=== PATIENT | male | born 1950 | race Caucasian/White ===

== ENCOUNTER 2016-11-15 06:26 | Day surgery (SDC) | payer MEDICARE ==
[~2016-11-15 06:26] MED LIST: BUPIVACAINE HCL 0.75% INJ/PF (7.5 MG/1 ML) 10 ML SDV OS PRN; KETOROLAC TROMETHAMINE 0.45% 4 DROP/0.4 ML DROPERETTE OS PRN; LIDOCAINE 4% INJ/PF (40 MG/ML) 5 ML AMPUL OS PRN
[2016-11-15] MEDS: TROPICAMIDE 1% OPH SOLN 3 ML OS PRN ×3 (06:41→07:20)
[2016-11-15] MEDS: CYCLOPENTOLATE 0.2%/PHENYLEPHRINE 1% OPH SOLN 2 ML OS PRN ×3 (06:41→07:20)
[2016-11-15] MEDS: BESIFLOXACIN HCL 0.6% OPH SUSP 5 ML BOTTLE OS PRN ×4 (06:42→07:59)
[2016-11-15] MEDS: TETRACAINE HCL 0.5% OPH SOLN 0.6 ML DROPERETTE OS PRN ×2 (06:43→07:22)
[2016-11-15] MEDS ORDERED: EPINEPHRINE INJ/PF 1 MG/1 ML AMPULE ONE (07:10)
[2016-11-15] MEDS ORDERED: CHONDR SU A NA/HYALUR INTRAOC KIT (SURGICARE) ONE (07:10)
[2016-11-15] MEDS ORDERED: PHENYLEPHRINE/KETOROLAC 1%-0.3% 4 ML VIAL ONE (07:20)
[2016-11-15] MEDS ORDERED: MIDAZOLAM 2 MG/2 ML INJ ONE ×2 (07:23→07:24)
--- NOTE | 2016-11-15 08:38 | [facility] DISCHARGE SUMMARY E ---
[facility] Discharge Summary NAME: MARIFER LOZA AGE: 66Y ADMITTED: 11/15/2016 DISCHARGED: 11/15/2016 HOSPITAL COURSE: The patient is a 66-year-old gentleman who underwent uneventful cataract extraction with intraocular lens implant, left eye, on 11/15/2016. He will be discharged to home. He is instructed to resume preoperative medications, take Tylenol as needed for discomfort, keep his eye shielded, to use Besivance, Durezol, and Ilevro at 3:00 p.m. and 8:00 p.m., and to followup in my office in 1 day. DICTATING PHYSICIAN: TAMARA SUAREZ M.D. [id number] Y#: [id number] ID: [id number] JOB#: [id number] ACCT: [id number] cc:TAMARA SUAREZ M.D. >
--- NOTE | 2016-11-15 08:38 | [facility] OPERATIVE REPORT E ---
[facility] Operative Report NAME: MARIFER LOZA AGE: 66Y DATE OF SURGERY: 11/15/2016 ROOM: PREOPERATIVE DIAGNOSIS: Cataract, left eye. POSTOPERATIVE DIAGNOSIS: Cataract, left eye. PROCEDURE PERFORMED: Phacoemulsification with Toric intraocular lens implant, left eye. SURGEON: TAMARA SUAREZ M.D. ANESTHESIA: Topical with MAC. INDICATIONS FOR SURGERY: Difficulty reading road signs and words on TV. Best corrected visual acuity 20/50. PROCEDURE: The patient was brought to the Operating Room and placed in a seated position. The 0, 180, and 270 degree axis of the eye was marked using a marking level. Prior to this, instrument wipe pledgets had been placed in the superior and inferior fornices. They consisted of a solution of 2% Xylocaine with epinephrine mixed with 0.75% Marcaine. The patient was placed in reclining position. The eye was sterilely prepped and draped in the usual manner. The pledgets were removed. Lid speculum was placed in the eye. Then 4-0 black silk sutures were placed around the superior and the inferior rectus muscles to be used as traction. A conjunctival peritomy was made at the 135 degree axis. Hemostasis was obtained with bipolar cautery. A posterior limbal groove was created using a crescent knife and dissected anteriorly towards the cornea. A sharp point blade was used to create a paracentesis site at the 2 o'clock position. A 2.4 mm keratome was used to enter the anterior chamber through the groove. Viscoelastic was injected into the anterior chamber. An anterior capsulotomy was performed using Utrata forceps in a capsulorrhexis fashion. Hydrodissection and hydrodelineation were performed. Phacoemulsification was performed in a xzfhan-gyy-wfjuxlf technique. A total of 40 seconds of total phaco time was used. Following this, the I/A unit was used to remove residual cortex. Viscoelastic was injected into the capsular bag. Intraocular lens model [id number], 22.0 diopters, serial number [id number], was placed in the eye. The 180 degree axis was marked on the eye. The lens was rotated within 10 degrees of the final axis. The I/A unit was used to remove residual Viscoat and the lens was rotated to the 180 degree axis. The wound was seen to be watertight under high or low pressure. No sutures were placed. The 4-0 black silk sutures and lid speculum were removed. The eye was shielded after Besivance drops were placed. The patient tolerated the procedure well and was sent to the Recovery Room in good condition. DICTATING PHYSICIAN: TAMARA SUAREZ M.D. [id number] PHY#: [id number] ID: [id number] JOB#: [id number] ACCT: [id number] cc:TAMARA SUAREZ M.D. >
== END 2016-11-15 08:41 | disposition home or self-care (01) ==
LOC: SC 06:26
PROVIDERS: ATTEND Ophthalmology
PROC: 08RK3JZ Replacement of Left Lens with Synthetic Substitute, Percutaneous Approach (ICD-10-PCS; principal; 2016-11-15 07:30)
DX: H25.813 Combined forms of age-related cataract, bilateral (principal); H53.2 Diplopia; H52.4 Presbyopia; H43.812 Vitreous degeneration, left eye; H17.811 Minor opacity of cornea, right eye; G51.0 Bell's palsy; I10 Essential (primary) hypertension; Z79.899 Other long term (current) drug therapy
CPT/HCPCS: 66984; V2787; J2250; J3490 ×3; A9270; J0171; C9447

== ENCOUNTER 2016-12-08 20:17 | Inpatient (IN) | payer MEDICARE ==
[2016-12-08] MEDS ORDERED: ONDANSETRON HCL INJ/PF 4 MG/2 ML SDV IV ONE ×2 (21:53→23:51)
[2016-12-08] MEDS ORDERED: HYDROMORPHONE HCL INJ/PF 2 MG/ML AMPULE IV ONE (21:53)
--- NOTE | 2016-12-08 21:56 | ER Document Report ---
ED GI/ - General Chief Complaint: Urinary Problem Stated Complaint: URINARY RETENTION Mode of Arrival: Ambulatory Information source: Patient Notes: This is a 66-year-old male with a history of hypertension who presents with inability to urinate and severe abdominal pain. He states that for the past 2 or 3 days he has felt it was difficult to urinate and only dribble would come out. He saw his primary care physician yesterday who put him on an antibiotic for urinary tract infection. Today his abdominal pain has become severe. He did vomit one time in route to the hospital. He states that he feels like he needs to urinate but is unable to. He states he has not urinated at all today. No prior history of urinary infection, kidney stone, or urinary retention. TRAVEL OUTSIDE OF THE [place] IN LAST 30 DAYS: No - Related Data Allergies/Adverse Reactions: BEE STINGS Allergy (Severe, Uncoded 12/08/16 20:26) Anaphylaxis Past Medical History - Social History Smoking Status: Unknown if Ever Smoked Family History: Reviewed & Not Pertinent - Past Medical History Cardiac Medical History: Reports: Hx Hypertension - MEDICATED Denies: Hx Heart Attack Pulmonary Medical History: Denies: Hx Asthma Neurological Medical History: Denies: Hx Cerebrovascular Accident, Hx Seizures Renal/ Medical History: Denies: Hx Peritoneal Dialysis GI Medical History: Reports: Hx Gastroesophageal Reflux Disease, Hx Ulcer - AT 15 YRS. Denies: Hx Hepatitis, Hx Hiatal Hernia Infectious Medical History: Denies: Hx Hepatitis Past Surgical History: Denies: Hx Open Heart Surgery, Hx Pacemaker Review of Systems - Review of Systems Constitutional: denies: Chills, Fever EENT: No symptoms reported Cardiovascular: No symptoms reported. denies: Chest pain Respiratory: No symptoms reported. denies: Cough, Short of breath Gastrointestinal: See HPI, Abdominal pain, Vomiting Genitourinary: See HPI Musculoskeletal: No symptoms reported Skin: No symptoms reported Hematologic/Lymphatic: No symptoms reported Neurological/Psychological: No symptoms reported Physical Exam - Vital signs Vitals: Temp Pulse Resp BP Pulse Ox 98.5 F 69 16 125/96 H 99 12/08/16 20:26 12/08/16 20:26 12/08/16 20:26 12/08/16 20:26 12/08/16 20:26 - Notes Notes: PHYSICAL EXAMINATION: GENERAL: Elderly male, somewhat ill-appearing and pale, conversant and in mild distress secondary to abdominal pain. HEAD: Atraumatic, normocephalic. EYES: Pupils equal round and reactive to light, extraocular movements intact, sclera anicteric, conjunctiva are normal. ENT: nares patent, oropharynx clear without exudates. Moist mucous membranes. NECK: Normal range of motion, supple without lymphadenopathy LUNGS: Breath sounds clear to auscultation bilaterally and equal. No wheezes rales or rhonchi. HEART: Regular rate and rhythm without murmurs ABDOMEN: Somewhat firm, distended, tender to palpation throughout the lower abdomen, no guarding or rebound, hypoactive bowel sounds but present EXTREMITIES: Normal range of motion, no pitting or edema. NEUROLOGICAL: Cranial nerves grossly intact. No gross focal motor or sensory deficits appreciated. Patient does answer somewhat slowly but is not confused at this time. PSYCH: Normal mood, normal affect. SKIN: Warm, Dry, pale, normal turgor, no rashes or lesions noted. Course - Re-evaluation Re-evalutation: 12/09/16 01:[address] results with the radiologist. There appears to be a focal perforation around the sigmoid. This is likely from a diverticuli. I discussed the case with the on-call surgeon Dr. Albright. We discussed the hyponatremia as well as the urinary retention in the sigmoid perforation. Patient will be admitted to the surgical floor. He has been given Rocephin and Zosyn. Normal saline is infusing. I discussed the plan and the diagnosis with the patient and the family. All questions were answered. - Vital Signs Vital signs: Temp Pulse Resp BP Pulse Ox 98.5 F 69 18 108/66 94 12/08/16 20:26 12/08/16 20:26 12/09/16 00:25 12/09/16 00:25 12/09/16 00:25 - Laboratory Result Diagrams: 12/08/16 22:30 12/08/16 22:30 Laboratory results interpreted by me: 12/08/16 12/08/16 12/08/16 22:30 22:30 22:30 WBC 18.4 H Seg Neuts % (Manual) 87 H Band Neutrophils % 2 L Lymphocytes % (Manual) 4 L Abs Neuts (Manual) 16.4 H Sodium 120.8 L* Chloride 82 L Urine Protein 30 H Urine Blood LARGE H Urine Nitrite POSITIVE H Urine Urobilinogen 4.0 H Ur Leukocyte Esterase MODERATE H Urine Ascorbic Acid 40 H Critical Care Note - Critical Care Note Total time excluding time spent on procedures (mins): 40 - minutes of critical care time spent in direct contact evaluating and reevaluating the patient, treating symptoms, reviewing labs and studies and speaking with family and consultants excluding any procedures Discharge - Discharge Clinical Impression: Perforation of sigmoid colon due to diverticulitis, Hyponatremia, Acute urinary retention UTI (urinary tract infection) Qualifiers: Urinary tract infection type: site unspecified Hematuria presence: without hematuria Qualified Code(s): N39.0 - Urinary tract infection, site not specified Condition: Serious Disposition: ADMITTED INPATIENT Admitting Provider: Surgicalist - Dr. Albright Unit Admitted: Surgical Floor
[2016-12-08 22:43] LABS: HEMOGLOBIN 13.8 g/dL (13.5-17.0); HGB HCT DIFFERENCE 2.4; MEAN CORPUSCULAR HEMOGLOBIN 31.5 pg (27.0-33.4); MEAN CORPUSCULAR HGB CONC 35.3 g/dL (32.0-36.0); MEAN CORPUSCULAR VOLUME 89 fl (80-97); RED BLOOD COUNT 4.36 10^6/uL (4.35-5.55); RED CELL DISTRIBUTION WIDTH 13.1 % (11.5-14.0); WHITE BLOOD COUNT 18.4 10^3/uL (4.0-10.5)
[2016-12-08 22:59] LABS: APPEARANCE,URINE CLOUDY; BILIRUBIN,URINE NEGATIVE (NEGATIVE); GLUCOSE, URINE NEGATIVE (NEGATIVE); KETONES,URINE NEGATIVE (NEGATIVE); LEUKOCYTE ESTERASE,URINE MODERATE (NEGATIVE); NITRITE,URINE POSITIVE (NEGATIVE); PROTEIN,URINE 30 mg/dL (NEGATIVE); URINE SPECIFIC GRAVITY 1.011
[2016-12-08 23:03] LABS: ALANINE AMINOTRANSFERASE 33 U/L (21-72); ALBUMIN 4.1 g/dL (3.5-5.0); ALKALINE PHOSPHATASE 79 U/L (38-126); ANION GAP 15 (5-19); ASPARTATE AMINO TRANSFERASE 35 U/L (17-59); BILIRUBIN,DIRECT 0.1 mg/dL (0.0-0.4); BILIRUBIN,TOTAL 1.2 mg/dL (0.2-1.3); BLOOD UREA NITROGEN 11 mg/dL (7-20); CALCIUM 9.4 mg/dL (8.4-10.2); CARBON DIOXIDE 24 mmol/L (22-30); CHLORIDE 82 mmol/L (98-107); CREATININE RESULT 1.09 mg/dL (0.52-1.25); GLUCOSE 110 mg/dL (75-110); LIPASE 50.3 U/L (23-300); POTASSIUM 3.9 mmol/L (3.6-5.0)
[2016-12-08] MEDS ORDERED: CEFTRIAXONE 1 GM/D5W RTU 50 ML IV ONE (23:08)
[2016-12-08 23:11] LABS: BAND NEUTROPHILS % (MANUAL) 2 % (3-5); BASOPHILS % (MANUAL) 0 % (0-2); EOSINOPHILS % (MANUAL) 0 % (0-6); LYMPHOCYTES % (MANUAL) 4 % (13-45); TOTAL CELLS COUNTED 100
[2016-12-08 23:12] LABS: RBC MORPHOLOGY COMMENT NORMO-CYTIC/CHROMIC
[2016-12-08 23:15] LABS: SODIUM 120.8 mmol/L (137-145)
[2016-12-08] MEDS ORDERED: NORMAL SALINE 1000 ML 1,000 ML IV ONE (23:50)
[2016-12-09] MEDS ORDERED: PROMETHAZINE HCL 25 MG SUPP.RECT PR ONE (00:57)
[2016-12-09] MEDS ORDERED: PIPERACILLIN/TAZOBACTAM 3.375 GM VIAL IV ONE (01:18)
[2016-12-09] MEDS: POTASSI CL 20 MEQ/NS 1L 1000 ML IV PRN ×2 (04:49→18:04)
[2016-12-09] MEDS ORDERED: DEXTROSE 50%-WATER 25 GM/50 ML DISP.SYRIN IV PRN ×2 (05:15)
[2016-12-09] MEDS ORDERED: DEXTROSE 40% GEL 15 GM TUBE PO PRN ×2 (05:15)
[2016-12-09] MEDS ORDERED: GLUCAGON,HUMAN RECOMB 1 MG INJ SUBCUT PRN (05:15)
[2016-12-09 06:24] LABS: HEMATOCRIT 36.3 % (37.9-51.0); HEMOGLOBIN 12.3 g/dL (13.5-17.0); HGB HCT DIFFERENCE 0.6; MEAN CORPUSCULAR HEMOGLOBIN 30.8 pg (27.0-33.4); MEAN CORPUSCULAR VOLUME 91 fl (80-97); RED CELL DISTRIBUTION WIDTH 13.1 % (11.5-14.0); WHITE BLOOD COUNT 12.7 10^3/uL (4.0-10.5)
--- NOTE | 2016-12-09 09:10 | EKG REPORT ---
SEVERITY:- BORDERLINE ECG - SINUS RHYTHM BORDERLINE LEFT AXIS DEVIATION NONSPECIFIC ST-T CHANGES- INFERIOR LEADS : Confirmed by: Donavon Gaming MD 09-Dec-2016 09:09:24
[2016-12-09] MEDS: PIPERACILLIN SODIUM/TAZOBACTAM 3.375 GM in NORMAL SALINE 100 ML IV SCH ×2 (09:30→17:56)
[2016-12-09] MEDS ORDERED: NORMAL SALINE 1000 ML 1,000 ML IV ONE (10:15)
[2016-12-09 10:35] LABS: BLOOD UREA NITROGEN 12 mg/dL (7-20); CALCIUM 8.6 mg/dL (8.4-10.2); CARBON DIOXIDE 28 mmol/L (22-30); CHLORIDE 87 mmol/L (98-107); CREATININE RESULT 1.06 mg/dL (0.52-1.25); GLUCOSE 112 mg/dL (75-110); POTASSIUM 3.9 mmol/L (3.6-5.0)
[2016-12-09 10:53] LABS: ANION GAP 5 (5-19)
[2016-12-09 11:02] LABS: SODIUM 119.6 mmol/L (137-145)
[2016-12-09] MEDS ORDERED: ROCURONIUM BROMIDE INJ 50 MG/5 ML VIAL IV ONE (11:12)
[2016-12-09] MEDS ORDERED: NEOSTIGMINE METHYLSULFATE 10 MG/10 ML VIAL ONE (11:12)
[2016-12-09] MEDS ORDERED: GLYCOPYRROLATE INJ 0.4 MG/2 ML VIAL ONE (11:12)
[2016-12-09] MEDS ORDERED: SUCCINYLCHOLINE CHLORIDE INJ 200 MG/10 ML VIAL ONE (11:12)
[2016-12-09] MEDS ORDERED: NORMAL SALINE 500 ML IV ONE (12:00)
[2016-12-09] MEDS ORDERED: ACETAMINOPHEN 100 ML IV ONE (12:07)
[2016-12-09] MEDS ORDERED: PROPOFOL INJ 200 MG/20 ML VIAL IV ONE (12:07)
[2016-12-09] MEDS ORDERED: MIDAZOLAM 2 MG/2 ML INJ ONE (12:07)
[2016-12-09] MEDS ORDERED: FENTANYL CITRATE INJ/PF 250 MCG/5 ML AMPULE ONE (12:07)
[2016-12-09] MEDS ORDERED: HYDROMORPHONE HCL INJ/PF 2 MG/ML AMPULE ONE (12:07)
[2016-12-09] MEDS ORDERED: FUROSEMIDE INJ/PF 40 MG/4 ML SDV ONE (12:17)
[2016-12-09] MEDS ORDERED: GLUCAGON,HUMAN RECOMB 1 MG INJ ONE (12:33)
[2016-12-09] MEDS ORDERED: BUPIVACAINE HCL 0.5%-EPI 1:200000 INJ/PF 30 ML VIAL ONE (13:31)
[2016-12-09] MEDS ORDERED: ONDANSETRON HCL INJ/PF 4 MG/2 ML SDV IV PRN ×2 (13:41→16:49)
[2016-12-09] MEDS ORDERED: MORPHINE SULFATE 10 MG/ML INJ IV PRN ×2 (13:41→16:49)
[2016-12-09] MEDS ORDERED: PROMETHAZINE HCL INJ 25 MG/1 ML VIAL IV PRN (13:41)
[2016-12-09] MEDS ORDERED: FENTANYL CITRATE INJ/PF 100 MCG/2 ML AMPUL IV PRN ×6 (13:41→16:49)
[2016-12-09] MEDS ORDERED: MEPERIDINE HCL/PF INJ 25 MG/1 ML DISP.SYRIN IV PRN ×2 (13:41→16:49)
[2016-12-09] MEDS ORDERED: DIPHENHYDRAMINE HCL 50 MG/ML VIAL IV PRN ×2 (13:41→16:49)
[2016-12-09] MEDS ORDERED: LABETALOL HCL INJ 20 MG/4 ML DISP.SYRIN IV PRN ×2 (13:41→16:49)
[2016-12-09 16:56] LABS: ANION GAP 7 (5-19); BLOOD UREA NITROGEN 11 mg/dL (7-20); CALCIUM 7.7 mg/dL (8.4-10.2); CARBON DIOXIDE 19 mmol/L (22-30); CHLORIDE 105 mmol/L (98-107); CREATININE RESULT 1.04 mg/dL (0.52-1.25); GLUCOSE 99 mg/dL (75-110); POTASSIUM 4.2 mmol/L (3.6-5.0); SODIUM 130.5 mmol/L (137-145)
[2016-12-09] MEDS: HYDROMORPHONE HCL INJ/PF 2 MG/ML AMPULE IV PRN (17:54)
--- NOTE | 2016-12-09 18:53 | PDOC CONSULTATION ---
Consultation Consult Date: 12/09/16 Attending physician:: GANESH NEIL Consult reason:: Hyponatremia History of Present Illness Admission Date/PCP: 12/09/16 01:00 SELMA LACEY History of Present Illness: MARIFER LOZA JR is a 66 year old male with past medical history of hypertension, hyperlipidemia who presented to the hospital today with inability to urinate and abdominal pain. Patient had seen his primary care physician was placed on Bactrim for a UTI. Patient subsequently was eating and drinking some and normally until about Saturday when his eating begin to decrease. He did have some diarrhea. He has had chronic diverticulitis and according to his does not always compliant with his diet. CT scan of the abdomen was performed in the emergency department and patient was found to have sigmoid perforation and was referred to the surgical service and taken for immediate surgical intervention. At the time patient was hyponatremic with sodium of 120. Prior to being taken to surgery, patient appears to have received several boluses of normal saline as per report he was hypotensive. The hospital service has been consulted for hyponatremia. Past Medical History Cardiac Medical History: Reports: Hypertension - MEDICATED Denies: Myocardial Infarction Pulmonary Medical History: Denies: Asthma Neurological Medical History: Denies: Seizures GI Medical History: Reports: Gastroesophageal Reflux Disease Denies: Hepatitis, Hiatal Hernia Hematology: Denies: Anemia, Sickle Cell Disease Past Surgical History Past Surgical History: Reports: None Denies: Pacemaker Social History Smoking Status: Former Smoker Number of Years Smokin Frequency of Alcohol Use: Social Amount of Alcoholic Beverages Per Day: 12oz wine Hx Recreational Drug Use: No Drugs: None Hx Prescription Drug Abuse: No - Advance Directive Resuscitation Status: Full Code Surrogate healthcare decision maker:: Angela Family History Family History: Malignancy, Other Parental Family History Reviewed: Yes Children Family History Reviewed: No Sibling(s) Family History Reviewed.: No Medication/Allergy Home Medications: Bupropion HCl [Wellbutrin Xl 300mg 24hr Tablet] 1 tab PO QAM 11/07/16 Fluticasone Furoate [Flonase Sensimist] 1 spray NS DAILYP PRN 11/07/16 Meloxicam [Mobic 7.5 Mg Tablet] 7.5 mg PO DAILY 11/07/16 Metoprolol Succinate [Toprol Xl] 25 mg PO DAILY 11/07/16 Pravastatin Sodium 40 mg PO DAILY 11/07/16 Trazodone HCl [Desyrel 50 mg Tablet] 50 mg PO QHS 11/07/16 Valsartan 160 mg PO DAILY 11/07/16 Cetirizine HCl [Zyrtec 10 mg Tablet] 1 tab PO DAILY 11/15/16 Omeprazole/Sodium Bicarbonate [Zegerid 20 Mg Capsule] 1 each PO DAILY 11/15/16 Allergies/Adverse Reactions: bee venom protein (honey bee) Allergy (Severe, Verified 12/09/16 03:28) Anaphylaxis Review of Systems ROS unobtainable: Due to mental status - Patient is currently lethargic after surgery Physical Exam Vital Signs: Temp Pulse Resp BP Pulse Ox 98.2 F 77 18 130/66 H 96 12/09/16 18:00 12/09/16 18:00 12/09/16 18:00 12/09/16 18:00 12/09/16 18:00 Intake & Output 12/08/16 12/09/16 12/10/16 06:59 06:59 06:59 Intake Total 0 6615 Output Total 3720 Balance 0 2895 Weight 79.2 kg General appearance: PRESENT: well-developed, well-nourished, other - Acutely ill -appearing Head exam: PRESENT: atraumatic, normocephalic Eye exam: PRESENT: conjunctiva pink, EOMI, PERRLA - Though myotic. ABSENT: scleral icterus Ear exam: PRESENT: normal external ear exam Mouth exam: PRESENT: dry mucosa, tongue midline Neck exam: ABSENT: JVD, lymphadenopathy, thyromegaly, tracheal deviation Respiratory exam: PRESENT: clear to auscultation emmanuel, symmetrical, unlabored. ABSENT: crackles, rales, retraction, rhonchi, tachypnea, wheezes Cardiovascular exam: PRESENT: RRR, +S1, +S2. ABSENT: clicks, diastolic murmur, gallop, rubs, systolic murmur, tachycardia Pulses: PRESENT: normal dorsalis pedis pul Vascular exam: PRESENT: normal capillary refill GI/Abdominal exam: PRESENT: tenderness - Diffusely tender, immediately postsurgical Rectal exam: PRESENT: deferred Extremities exam: ABSENT: clubbing, pedal edema Neurological exam: PRESENT: awake, oriented to person, oriented to place, oriented to time, oriented to situation, CN II-XII grossly intact. ABSENT: alert - Sleepy, immediately postsurgical, motor sensory deficit Psychiatric exam: PRESENT: appropriate affect, normal mood. ABSENT: homicidal ideation, suicidal ideation Skin exam: PRESENT: dry, intact, warm. ABSENT: cyanosis, rash Results Laboratory Results: 12/09/16 06:14 12/09/16 16:24 12/09/16 12/09/16 12/09/16 06:14 06:14 06:14 WBC 12.7 H RBC 4.00 L Hgb 12.3 L Hct 36.3 L MCV 91 MCH 30.8 MCHC 34.0 RDW 13.1 Plt Count 131 L Sodium 119.6 L* Potassium 3.9 Chloride 87 L Carbon Dioxide 28 Anion Gap 5 BUN 12 Creatinine 1.06 Est GFR ( Amer) > 60 Est GFR (Non-Af Amer) > 60 Glucose 112 H Calcium 8.6 Blood Type O POSITIVE Antibody Screen NEGATIVE 12/09/16 16:24 WBC RBC Hgb Hct MCV MCH MCHC RDW Plt Count Sodium 130.5 L Potassium 4.2 Chloride 105 Carbon Dioxide 19 L Anion Gap 7 BUN 11 Creatinine 1.04 Est GFR ( Amer) > 60 Est GFR (Non-Af Amer) > 60 Glucose 99 Calcium 7.7 L Blood Type Antibody Screen 12/09/16 06:14 NT-Pro-B Natriuret Pep 863 Impressions: Chest X-Ray 12/08/16 21:54 IMPRESSION: Mild left basilar atelectasis. Abdomen/Pelvis CT 12/09/16 00:00 IMPRESSION: Colonic diverticulosis. Mild inflammatory changes with a gas and fluid collection in the anterior midline pelvis adjacent to the sigmoid colon, suggestive of acute diverticulitis with a contained bowel perforation. Surgical consult recommended. Assessment & Plan - Diagnosis (1) Hyponatremia Is this a current diagnosis for this admission?: YesPlan: This is likely secondary to dehydration patient's urine sodium is 73. Will obtain a serum and urine osmolality. However patient is quite clearly dehydrated and requires IV fluid. This likely represents hyponatremia secondary to intravascular volume depletion. Due to rapid correction from 119.6 to 130.5, will administer 1 L of D5 and repeat sodium at which time, new IV fluid orders will be placed. Upon review of patient's former labs, he appears to be mildly hyponatremic chronically with previous sodium coming in at 136.7. Goal will be for the total increase sodium by no more than 8 mEq the next 24 hours. Sign out of outstanding labs and maintenance fluid will be given to the night physician. (2) Perforation of sigmoid colon due to diverticulitis Is this a current diagnosis for this admission?: YesPlan: At this time, defer all management of abdominal complaints, complications, diagnoses, and treatments to the surgical team. (3) Acute urinary retention Is this a current diagnosis for this admission?: YesPlan: Patient currently has Fajardo in place and will consider Flomax plus or minus urology consult. (4) UTI (urinary tract infection) Qualifiers: Urinary tract infection type: site unspecified Hematuria presence: without hematuria Qualified Code(s): N39.0 - Urinary tract infection, site not specified Is this a current diagnosis for this admission?: YesPlan: Patient is currently on Zosyn pending results of culture. Family reports this is his first UTI - Time Time Spent: 50 to 70 Minutes Medications reviewed and adjusted accordingly: Yes
--- NOTE | 2016-12-09 18:54 | HISTORY AND PHYSICAL E ---
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 The patient presented to the emergency room with a 2-day history of severe abdominal pain, most started up in the lower abdomen and then before that, he could not urinate. He developed also, fever with some chills. He came to emergency room, where abdominal CT scan showed diverticulitis with air bubbles around the colon, indicative of diverticulitis with a microperforation. Also, he is having difficulty in passing urine. He has severe urinary retention. After putting in a Fajardo, he put out immediately about 1 L to 1.5 L of dark urine. The patient also gives a history of intermittent left lower abdominal pain, pain in the suprapubic area for the last few weeks. Also, patient experiencing passing bubbles of air in the urine, pneumaturia. The patient had a history of diverticulitis in the past. No recent colonoscopy. PAST MEDICAL PROBLEMS: History of mild hypertension. No other major medical problems. PAST SURGICAL HISTORY: No surgical history reported. PHYSICAL EXAMINATION: VITAL SIGNS: He has a temperature of about 99, up to 100. HEENT: No lymphadenopathy. No masses. RESPIRATORY: Both lungs with good air entry. CARDIOVASCULAR: Both heart sounds are regular. No murmurs. No gallops. ABDOMEN: Soft abdomen. Tender in the left lower abdomen with some amount of localized rebound. Bowel sounds are present, somewhat sluggish. EXTREMITIES: Warm and well perfused. NEUROLOGIC: No focal motor neurological deficits. DIAGNOSTIC DATA: Labs: His sodium was 120 (hyponatremia), potassium is normal, BUN and creatinine are normal. White count was 18, hemoglobin [address] scan, which revealed diverticulitis with air bubbles. Found maybe some air bubbles in the bladder. IMPRESSION: Overall, recurrent diverticulitis with localized perforation, possible colovesical fistula. PLAN: Admission. Correct the hyponatremia. More than likely will need a surgery, but I want to correct the hyponatremia, give him some fluids, start him on Zosyn, reevaluate in a few hours and based on that, he will need surgical intervention. DICTATING PHYSICIAN: GANESH NEIL M.D. [id number] PHY#: [id number] ID: [id number] JOB#: [id number] ACCT: [id number] cc:GANESH NEIL M.D. > [facility]
--- NOTE | 2016-12-09 18:57 | OPERATIVE REPORT E ---
Operative Report NAME: MARIFER LOZA : 1950 AGE: 66Y DATE OF SURGERY: 12/09/2016 ROOM: 415 PREOPERATIVE DIAGNOSES: 1. Recurrent sigmoid diverticulosis with a localized perforation of the colon related the fistula. 2. Urosepsis. POSTOPERATIVE DIAGNOSES: 1. Recurrent sigmoid diverticulosis with a localized perforation of the colon related the fistula with a colorectal fistula. 2. Urosepsis. 3. Localized abscess. OPERATION: 1. Laparoscopic resection of the sigmoid and distal descending colon with a proximal ascending colon to colorectal anastomosis. 2. Laparoscopic drainage of the pericolonic abscess. 3. Laparoscopic splenic flexure mobilization . 4. Repair of colorectal fistula and bladder repair complex in the dome of the bladder. SURGEON: GANESH NEIL M.D. ANESTHESIA: General. ESTIMATED BLOOD LOSS: Less than 50 mL. TISSUE REMOVED OR ALTERED: Specimens: Left colon. HISTORY/INDICATION: This gentleman had a history of diverticulitis before, presented to the emergency room with a history of acute onset of abdominal pain in the left lower quadrant of the abdomen, also fever and severe hyponatremia noted in the emergency room. A CT scan revealed some air around the colon, air bubbles in the bladder and a white count of 18,000, and then he had hyponatremia with a 120 sodium. He was placed in the hospital to correct the severe hyponatremia, started on normal saline, fluid restriction, and then patient also gave a classical history of colorectal fistula with pneumaturia and severe urosepsis. He needed a rather urgent emergency laparoscopic colonic resection because of the urosepsis, severe hyponatremia, and then also fever with chills. We additionally explained about the possibility of a colonoscopy and then a reoperation. He was taken to the operating room with informed consent. DESCRIPTION OF PROCEDURE: Under general anesthesia, with prior intubation and SCD boots, he was given an IV antibiotics . Initial access was a 5 mm trocar in the supraumbilical area. Two 5 mm trocars in the right side abdomen area and a 12 mm in the suprapubic area. Findings were a sigmoid phlegmon, and then the sigmoid colon was attached to the dome of the bladder indicative of a colorectal fistula. In the anterior abdominal wall between the colon and the anterior abdominal wall there is an abscess localized. Proximal colon was pretty healthy except for a few diverticula in the distal descending colon. After confirming of the proximal descending colon, the transverse colon, and descending colon absolutely appeared to be normal, we proceeded with a left colon resection. Initially we performed the part of the operation which was a splenic flexure mobilization. The splenic flexure was completely mobilized by dividing the greater omental attachments to the distal transverse colon and also splenic flexure further mobilized by dividing the greater omental attachments. After that, splenocolic, renal colonic, and pancreatic colonic ligaments were divided so that the splenic flexure and mesocolon were completely mobilized. After that, lateral to medial mobilization of the descending colon was performed all the way to the rectosigmoid colon.. At this point, the left ureter was completely identified and thus it was removed from this area. After completion of this, the medial mobilization was done, and the inferior mesenteric artery and inferior mesenteric vein was divided by using Hemoclips and an Enseal device . In the proximal ascending colon there was a demarcation between the proximal healthy colon and distal inflamed colon, so the end of the proximal ascending colon was divided with proximal dissection to that point. The mesocolon was divided between the clips and Enseal device. The proximal ascending colon was divided by using the [place] stapler. After that, dissection was taken down towards the upper part of the rectum with dissection all around. Superior rectal vessel were preserved. The rectum had excellent blood supply. The upper part of the rectum was circumferentially mobilized, and then it was divided by using a thicker stapler, and while mobilizing it, the localized abscess was drained out without any further contamination of the rest of the abdominal cavity. After draining this, abdominal cavity and pelvic cavity were again suctioned out until the effluent was very clear. The supraumbilical 12 mm trocar was extended for another 2 cm, and a wound protector was placed. Through the wound protector, specimen was retrieved. After that, proximally the descending colon was brought out and then the an anvil of was inserted into the proximal ascending colon, secured in place to the back of the peritoneal cavity. The peritoneal cavity, after irrigating and once it was suctioned out, had Seprafilm placed in the abdominal cavity to prevent adhesions. Now, the subumbilical incision was closed by using #0-Vicryl. At this point, the suprapubic area and the bladder dome was exposed where the fistula was present, so bladder dome fistula was repaired after freshening the edges by using the #0-Vicryl running no two layers. After completion of repair of the bladder dome, now the rest of the peritoneum was closed by using #0-Vicryl and then the fascia was closed with #0 looped PDS. After that, the fascia suture was left untied at this point, and the pneumoperitoneum was re-created under direct laparoscopic visualization. Descending colon to upper rectal anastomosis was performed between the upper part of the rectum and the distal descending colon that was run after inserting the stapler to the mid point of the segment, and was brought out to the pin. Anvil was engaged after making sure left colon was straight without any kinks. The staple line was completely closed and then fired, and two complete circular donuts were obtained leaving excellent anastomosis and vascularity which was confirmed by sigmoidoscopy, and then the anastomotic staple line was reinforced both posteriorly and anteriorly by using the 2-0 Vicryl sutures. The anastomotic donuts were complete. After that, a BAN drain was placed in the anastomotic area, brought out through the 5 mm trocar in the right lower quadrant area. Then, all the trocars were removed from the abdomen and the stay sutures was tied, 4-0 Monocryl for the skin, Dermabond applied. The patient was stable throughout the operation without any evident problems and taken to recovery room in stable condition. DICTATING PHYSICIAN: GANESH NEIL M.D. [id number] PHY#: [id number] ID: [id number] JOB#: [id number] ACCT: [id number] cc:GANESH NEIL M.D. > MTDD
[2016-12-09] MEDS ORDERED: DEXTROSE 5%-WATER 1000 ML 1,000 ML IV ONE (19:30)
[2016-12-09 19:49] LABS: ALBUMIN 2.8 g/dL (3.5-5.0); ANION GAP 12 (5-19); BLOOD UREA NITROGEN 11 mg/dL (7-20); CALCIUM 7.5 mg/dL (8.4-10.2); CARBON DIOXIDE 18 mmol/L (22-30); CHLORIDE 103 mmol/L (98-107); GLUCOSE 109 mg/dL (75-110); POTASSIUM 4.3 mmol/L (3.6-5.0); SODIUM 132.6 mmol/L (137-145)
[2016-12-09 19:55] LABS: URINE CREATININE 125.4 mg/dL (22-328)
[2016-12-09] MEDS ORDERED: DEXTROSE 5% IV PRN (20:25)
[2016-12-09] MEDS ORDERED: WATER IV PRN (20:25)
[2016-12-09] MEDS ORDERED: DESMOPRESSIN ACETATE INJ 4 MCG/1 ML AMPULE SUBCUT ONE ×2 (20:26→22:00)
[2016-12-09] MEDS ORDERED: DEXTROSE 5%-WATER 1000 ML 1,000 ML IV PRN ×2 (20:34→21:31)
[2016-12-09] MEDS ORDERED: DESMOPRESSIN ACETATE INJ 4 MCG/1 ML AMPULE ONE (20:47)
[2016-12-09 21:16] LABS: ANION GAP 12 (5-19); BLOOD UREA NITROGEN 11 mg/dL (7-20); CALCIUM 7.8 mg/dL (8.4-10.2); CARBON DIOXIDE 18 mmol/L (22-30); CHLORIDE 103 mmol/L (98-107); CREATININE RESULT 1.01 mg/dL (0.52-1.25); GLUCOSE 170 mg/dL (75-110); POTASSIUM 4.3 mmol/L (3.6-5.0); SODIUM 132.9 mmol/L (137-145)
[2016-12-10 01:00] LABS: ANION GAP 7 (5-19); BLOOD UREA NITROGEN 11 mg/dL (7-20); CALCIUM 7.7 mg/dL (8.4-10.2); CARBON DIOXIDE 22 mmol/L (22-30); CHLORIDE 99 mmol/L (98-107); CREATININE RESULT 1.12 mg/dL (0.52-1.25); GLUCOSE 159 mg/dL (75-110); POTASSIUM 3.8 mmol/L (3.6-5.0); SODIUM 128.1 mmol/L (137-145)
[2016-12-10] MEDS ORDERED: DEXTROSE 5%-WATER 1000 ML 1,000 ML IV PRN (01:20)
[2016-12-10] MEDS: PIPERACILLIN SODIUM/TAZOBACTAM 3.375 GM in NORMAL SALINE 100 ML IV SCH ×3 (01:25→17:52)
[2016-12-10] MEDS: HYDROMORPHONE HCL INJ/PF 2 MG/ML AMPULE IV PRN ×5 (01:51→22:52)
[2016-12-10] MEDS ORDERED: ACETAMINOPHEN 325 MG TABLET PO PRN (02:37)
[2016-12-10 05:37] LABS: ABSOLUTE LYMPHOCYTES (AUTO) 0.4 10^3/uL (0.5-4.7); ABSOLUTE MONOCYTES (AUTO) 0.3 10^3/uL (0.1-1.4); ABSOLUTE NEUT (AUTO) 6.6 10^3/uL (1.7-8.2); BASOPHILS % (AUTO) 0.3 % (0-2); EOSINOPHILS % (AUTO) 0.1 % (0-6); HEMATOCRIT 34.1 % (37.9-51.0); HEMOGLOBIN 11.9 g/dL (13.5-17.0); HGB HCT DIFFERENCE 1.6; LYMPHOCYTES % (AUTO) 5.3 % (13-45); MEAN CORPUSCULAR HEMOGLOBIN 31.6 pg (27.0-33.4); MEAN CORPUSCULAR HGB CONC 34.9 g/dL (32.0-36.0); MEAN CORPUSCULAR VOLUME 91 fl (80-97); MONOCYTES % (AUTO) 4.2 % (3-13); RED BLOOD COUNT 3.76 10^6/uL (4.35-5.55); RED CELL DISTRIBUTION WIDTH 13.3 % (11.5-14.0); SEGMENTED NEUTROPHILS % (AUTO) 90.1 % (42-78); WHITE BLOOD COUNT 7.3 10^3/uL (4.0-10.5)
[2016-12-10 05:56] LABS: ANION GAP 7 (5-19); BLOOD UREA NITROGEN 11 mg/dL (7-20); CALCIUM 7.8 mg/dL (8.4-10.2); CARBON DIOXIDE 22 mmol/L (22-30); CHLORIDE 98 mmol/L (98-107); CREATININE RESULT 1.04 mg/dL (0.52-1.25); GLUCOSE 143 mg/dL (75-110); POTASSIUM 3.9 mmol/L (3.6-5.0); SODIUM 126.7 mmol/L (137-145)
[2016-12-10] MEDS ORDERED: NEOSTIGMINE METHYLSULFATE 10 MG/10 ML VIAL SUBCUT ONE (06:55)
--- NOTE | 2016-12-10 06:55 | PDOC PROGRESS REPORT ---
Subjective Progress Note for:: 12/10/16 Subjective:: pain under control No Flatus yet Physical Exam Vital Signs: Temp Pulse Resp BP Pulse Ox 98.0 F 78 20 124/67 93 12/10/16 05:40 12/10/16 05:40 12/10/16 05:40 12/10/16 05:40 12/10/16 05:40 Intake & Output 12/08/16 12/09/16 12/10/16 06:59 06:59 06:59 Intake Total 0 8515 Output Total 4490 Balance 0 4025 Weight 79.2 kg GI/Abdominal exam: PRESENT: other - Abdomen - distended soft katrina -serous Results Laboratory Results: 12/10/16 04:56 12/10/16 04:56 12/09/16 12/09/16 12/09/16 06:14 06:14 16:24 WBC RBC Hgb Hct MCV MCH MCHC RDW Plt Count Seg Neutrophils % Lymphocytes % Monocytes % Eosinophils % Basophils % Absolute Neutrophils Absolute Lymphocytes Absolute Monocytes Absolute Eosinophils Absolute Basophils Sodium 119.6 L* 130.5 L Potassium 3.9 4.2 Chloride 87 L 105 Carbon Dioxide 28 19 L Anion Gap 5 7 BUN 12 11 Creatinine 1.06 1.04 Est GFR ( Amer) > 60 > 60 Est GFR (Non-Af Amer) > 60 > 60 Glucose 112 H 99 Serum Osmolality Calcium 8.6 7.7 L Albumin Urine Osmolality Blood Type O POSITIVE Antibody Screen NEGATIVE 12/09/16 12/09/16 12/09/16 16:24 18:30 19:00 WBC RBC Hgb Hct MCV MCH MCHC RDW Plt Count Seg Neutrophils % Lymphocytes % Monocytes % Eosinophils % Basophils % Absolute Neutrophils Absolute Lymphocytes Absolute Monocytes Absolute Eosinophils Absolute Basophils Sodium 132.6 L Potassium 4.3 Chloride 103 Carbon Dioxide 18 L Anion Gap 12 BUN 11 Creatinine 1.10 Est GFR ( Amer) > 60 Est GFR (Non-Af Amer) > 60 Glucose 109 Serum Osmolality 274 L Calcium 7.5 L Albumin 2.8 L Urine Osmolality 659 Blood Type Antibody Screen 12/09/16 12/09/16 12/10/16 20:50 23:00 00:25 WBC RBC Hgb Hct MCV MCH MCHC RDW Plt Count Seg Neutrophils % Lymphocytes % Monocytes % Eosinophils % Basophils % Absolute Neutrophils Absolute Lymphocytes Absolute Monocytes Absolute Eosinophils Absolute Basophils Sodium 132.9 L Cancelled 128.1 L Potassium 4.3 Cancelled 3.8 Chloride 103 Cancelled 99 Carbon Dioxide 18 L Cancelled 22 Anion Gap 12 Cancelled 7 BUN 11 Cancelled 11 Creatinine 1.01 Cancelled 1.12 Est GFR ( Amer) > 60 Cancelled > 60 Est GFR (Non-Af Amer) > 60 Cancelled > 60 Glucose 170 H Cancelled 159 H Serum Osmolality Calcium 7.8 L Cancelled 7.7 L Albumin Urine Osmolality Blood Type Antibody Screen 12/10/16 12/10/16 04:56 04:56 WBC 7.3 RBC 3.76 L Hgb 11.9 L Hct 34.1 L MCV 91 MCH 31.6 MCHC 34.9 RDW 13.3 Plt Count 141 L Seg Neutrophils % 90.1 H Lymphocytes % 5.3 L Monocytes % 4.2 Eosinophils % 0.1 Basophils % 0.3 Absolute Neutrophils 6.6 Absolute Lymphocytes 0.4 L Absolute Monocytes 0.3 Absolute Eosinophils 0.0 Absolute Basophils 0.0 Sodium 126.7 L Potassium 3.9 Chloride 98 Carbon Dioxide 22 Anion Gap 7 BUN 11 Creatinine 1.04 Est GFR ( Amer) > 60 Est GFR (Non-Af Amer) > 60 Glucose 143 H Serum Osmolality Calcium 7.8 L Albumin Urine Osmolality Blood Type Antibody Screen 12/09/16 06:14 NT-Pro-B Natriuret Pep 863 Impressions: Chest X-Ray 12/08/16 21:54 IMPRESSION: Mild left basilar atelectasis. Abdomen/Pelvis CT 12/09/16 00:00 IMPRESSION: Colonic diverticulosis. Mild inflammatory changes with a gas and fluid collection in the anterior midline pelvis adjacent to the sigmoid colon, suggestive of acute diverticulitis with a contained bowel perforation. Surgical consult recommended. Assessment & Plan - Plan Summary Plan Summary: Complicated diverticulitis with colovesical fistula s/p Laparoscopic left colon resection with primary anastamosis with wash out Colonic Mary Lou po sips only Ambulate Continue IV antibiotics
[2016-12-10] MEDS ORDERED: RINGERS SOLUTION,LACTATED 1,000 ML IV PRN ×2 (07:06→12:58)
[2016-12-10] MEDS: ENOXAPARIN SODIUM INJ 40 MG/0.4 ML DISP.SYRIN SUBCUT SCH (09:52)
[2016-12-10] MEDS ORDERED: METOPROLOL SUCCINATE 25 MG TAB.SR.24H PO SCH (10:00)
[2016-12-10 11:18] LABS: ANION GAP 10 (5-19); BLOOD UREA NITROGEN 11 mg/dL (7-20); CALCIUM 7.8 mg/dL (8.4-10.2); CARBON DIOXIDE 20 mmol/L (22-30); CHLORIDE 97 mmol/L (98-107); CREATININE RESULT 0.89 mg/dL (0.52-1.25); GLUCOSE 118 mg/dL (75-110); POTASSIUM 3.7 mmol/L (3.6-5.0); SODIUM 126.9 mmol/L (137-145)
[2016-12-10] MEDS ORDERED: FLUTICASONE FUROATE NS PRN (13:16)
--- NOTE | 2016-12-10 13:20 | PDOC PROGRESS REPORT ---
Subjective Progress Note for:: 12/10/16 Subjective:: Patient is currently awake. He denies any headaches, nausea, vomiting, but does report he's generally weak, but attributes this to recent surgery. He has not yet passed flatus. Patient denies chest pain, shortness of breath, nausea, vomiting, fevers, chills , diarrhea, constipation, headache, new onset weakness. Physical Exam Vital Signs: Temp Pulse Resp BP Pulse Ox 98.0 F 78 20 124/67 93 12/10/16 05:40 12/10/16 05:40 12/10/16 05:40 12/10/16 05:40 12/10/16 05:40 Intake & Output 12/09/16 12/10/16 12/11/16 06:59 06:59 06:59 Intake Total 0 9715 Output Total 4490 Balance 0 5225 Weight 79.2 kg Exam: General: Awake alert and oriented x3, no acute respiratory distress HEENT: AT/NC, PERRL, EOMI, oropharynx is moist, pink, no scleral icterus, no conjunctival injection Neck: No JVD, trachea midline Chest: Prolonged expiratory phase, bilateral bibasilar crackles CV: Regular rate and rhythm, normal S1 and S2, no murmur, rub, or gallop Abdomen: Diffusely tender to palpation, distended, high pitched active bowel sounds; no rebound, rigidity, or guarding Extremities: No cyanosis, clubbing; trace edema Neuro: Cranial nerves II through XII are grossly intact without focal deficits; awake alert and oriented x3 Psych: Normal mood and affect Results Laboratory Results: 12/10/16 04:56 12/10/16 04:56 12/09/16 12/09/16 12/09/16 06:14 16:24 16:24 WBC RBC Hgb Hct MCV MCH MCHC RDW Plt Count Seg Neutrophils % Lymphocytes % Monocytes % Eosinophils % Basophils % Absolute Neutrophils Absolute Lymphocytes Absolute Monocytes Absolute Eosinophils Absolute Basophils Sodium 119.6 L* 130.5 L Potassium 3.9 4.2 Chloride 87 L 105 Carbon Dioxide 28 19 L Anion Gap 5 7 BUN 12 11 Creatinine 1.06 1.04 Est GFR ( Amer) > 60 > 60 Est GFR (Non-Af Amer) > 60 > 60 Glucose 112 H 99 Serum Osmolality 274 L Calcium 8.6 7.7 L Albumin Urine Osmolality 12/09/16 12/09/16 12/09/16 18:30 19:00 20:50 WBC RBC Hgb Hct MCV MCH MCHC RDW Plt Count Seg Neutrophils % Lymphocytes % Monocytes % Eosinophils % Basophils % Absolute Neutrophils Absolute Lymphocytes Absolute Monocytes Absolute Eosinophils Absolute Basophils Sodium 132.6 L 132.9 L Potassium 4.3 4.3 Chloride 103 103 Carbon Dioxide 18 L 18 L Anion Gap 12 12 BUN 11 11 Creatinine 1.10 1.01 Est GFR ( Amer) > 60 > 60 Est GFR (Non-Af Amer) > 60 > 60 Glucose 109 170 H Serum Osmolality Calcium 7.5 L 7.8 L Albumin 2.8 L Urine Osmolality 659 12/09/16 12/10/16 12/10/16 23:00 00:25 04:56 WBC 7.3 RBC 3.76 L Hgb 11.9 L Hct 34.1 L MCV 91 MCH 31.6 MCHC 34.9 RDW 13.3 Plt Count 141 L Seg Neutrophils % 90.1 H Lymphocytes % 5.3 L Monocytes % 4.2 Eosinophils % 0.1 Basophils % 0.3 Absolute Neutrophils 6.6 Absolute Lymphocytes 0.4 L Absolute Monocytes 0.3 Absolute Eosinophils 0.0 Absolute Basophils 0.0 Sodium Cancelled 128.1 L Potassium Cancelled 3.8 Chloride Cancelled 99 Carbon Dioxide Cancelled 22 Anion Gap Cancelled 7 BUN Cancelled 11 Creatinine Cancelled 1.12 Est GFR ( Amer) Cancelled > 60 Est GFR (Non-Af Amer) Cancelled > 60 Glucose Cancelled 159 H Serum Osmolality Calcium Cancelled 7.7 L Albumin Urine Osmolality 12/10/16 04:56 WBC RBC Hgb Hct MCV MCH MCHC RDW Plt Count Seg Neutrophils % Lymphocytes % Monocytes % Eosinophils % Basophils % Absolute Neutrophils Absolute Lymphocytes Absolute Monocytes Absolute Eosinophils Absolute Basophils Sodium 126.7 L Potassium 3.9 Chloride 98 Carbon Dioxide 22 Anion Gap 7 BUN 11 Creatinine 1.04 Est GFR ( Amer) > 60 Est GFR (Non-Af Amer) > 60 Glucose 143 H Serum Osmolality Calcium 7.8 L Albumin Urine Osmolality 12/09/16 06:14 NT-Pro-B Natriuret Pep 863 Impressions: Chest X-Ray 12/08/16 21:54 IMPRESSION: Mild left basilar atelectasis. Abdomen/Pelvis CT 12/09/16 00:00 IMPRESSION: Colonic diverticulosis. Mild inflammatory changes with a gas and fluid collection in the anterior midline pelvis adjacent to the sigmoid colon, suggestive of acute diverticulitis with a contained bowel perforation. Surgical consult recommended. Assessment & Plan - Diagnosis (1) Hyponatremia Is this a current diagnosis for this admission?: YesPlan: Patient required DDAVP overnight and is now starting with a sodium of 127. Goal will be for the total increase sodium by no more than 4mEq the next 24 hours. Patient self reports drinking more than a gallon of water daily prior to admission. Patient also had urinary retention and had more than 1.5 L out when Fajardo was placed. Patient then received 9715 mL of fluid in the last 24 hours with 4490mL out. Patient's repeat urine sodium is elevated which is consistent with his hyponatremia secondary to volume overload. Will give patient 10 mg of IV Lasix and continue to monitor BMP every 4hours. (2) Perforation of sigmoid colon due to diverticulitis Is this a current diagnosis for this admission?: YesPlan: At this time, defer all management of abdominal complaints, complications, diagnoses, and treatments to the surgical primary team. Patient is status post laparoscopic resection of the sigmoid colon day #1. (3) Acute urinary retention Is this a current diagnosis for this admission?: YesPlan: Patient currently has Fajardo in place and will initiate Flomax plus or minus urology consult. (4) UTI (urinary tract infection) Qualifiers: Urinary tract infection type: site unspecified Hematuria presence: with hematuria Qualified Code(s): N39.0 - Urinary tract infection, site not specified; R31.9 - Hematuria, unspecified Is this a current diagnosis for this admission?: YesPlan: Patient is currently on Zosyn pending identification of gram-negative rods and gram-positive cocci which are currently growing in his urine. (5) Hypertension Is this a current diagnosis for this admission?: YesPlan: Will reinitiate valsartan once blood pressure improves (6) Impaired fasting glucose Is this a current diagnosis for this admission?: YesPlan: Check hemoglobin A1c (7) Anemia Qualifiers: Anemia type: unspecified type Qualified Code(s): D64.9 - Anemia, unspecified Is this a current diagnosis for this admission?: YesPlan: Send anemia panel in the morning - Time Time Spent with patient: 25-34 minutes Medications reviewed and adjusted accordingly: Yes Anticipated discharge: Home Within: within 48 hours
[2016-12-10] MEDS ORDERED: FLUTICASONE NASAL SPRAY 50 MCG/SPRY 120 SPRAY/16 GM NASL PRN (13:25)
[2016-12-10] MEDS ORDERED: FUROSEMIDE INJ/PF 20 MG/2 ML SDV IV ONE (13:30)
[2016-12-10 16:20] LABS: ANION GAP 11 (5-19); BLOOD UREA NITROGEN 12 mg/dL (7-20); CARBON DIOXIDE 25 mmol/L (22-30); CHLORIDE 93 mmol/L (98-107); CREATININE RESULT 0.98 mg/dL (0.52-1.25); GLUCOSE 106 mg/dL (75-110); POTASSIUM 3.6 mmol/L (3.6-5.0)
[2016-12-10] MEDS: TAMSULOSIN HCL 0.4 MG CAP.SR.24H PO SCH (17:52)
[2016-12-10 20:30] LABS: ANION GAP 6 (5-19); BLOOD UREA NITROGEN 13 mg/dL (7-20); CALCIUM 8.2 mg/dL (8.4-10.2); CARBON DIOXIDE 26 mmol/L (22-30); CHLORIDE 96 mmol/L (98-107); CREATININE RESULT 1.09 mg/dL (0.52-1.25); GLUCOSE 101 mg/dL (75-110); POTASSIUM 3.8 mmol/L (3.6-5.0); SODIUM 127.7 mmol/L (137-145)
--- NOTE | 2016-12-10 21:33 | EKG REPORT ---
SEVERITY:- ABNORMAL ECG - SINUS RHYTHM NONSPECIFIC T ABNORMALITIES, INFERIOR LEADS : Confirmed by: Jeri Silver 10-Dec-2016 21:32:22
[2016-12-10] MEDS ORDERED: TRAZODONE HCL 50 MG TABLET PO SCH (22:00)
[2016-12-10] MEDS ORDERED: DEXTROSE 5%-1/2 NORMAL SALINE 1,000 ML IV PRN (23:44)
[2016-12-11 00:16] LABS: ANION GAP 9 (5-19); BLOOD UREA NITROGEN 13 mg/dL (7-20); CALCIUM 8.5 mg/dL (8.4-10.2); CARBON DIOXIDE 26 mmol/L (22-30); CHLORIDE 96 mmol/L (98-107); CREATININE RESULT 1.09 mg/dL (0.52-1.25); GLUCOSE 102 mg/dL (75-110); MAGNESIUM 1.8 mg/dL (1.6-2.3); SODIUM 130.8 mmol/L (137-145)
[2016-12-11] MEDS ORDERED: TRAZODONE HCL 50 MG TABLET PO ONE (00:30)
[2016-12-11] MEDS: PIPERACILLIN SODIUM/TAZOBACTAM 3.375 GM in NORMAL SALINE 100 ML IV SCH ×3 (02:19→17:50)
[2016-12-11] MEDS: HYDROMORPHONE HCL INJ/PF 2 MG/ML AMPULE IV PRN ×5 (04:03→23:41)
[2016-12-11 05:08] LABS: ANION GAP 10 (5-19); BLOOD UREA NITROGEN 12 mg/dL (7-20); CALCIUM 8.4 mg/dL (8.4-10.2); CARBON DIOXIDE 25 mmol/L (22-30); CHLORIDE 99 mmol/L (98-107); GLUCOSE 113 mg/dL (75-110); POTASSIUM 3.6 mmol/L (3.6-5.0); SODIUM 133.8 mmol/L (137-145)
[2016-12-11 05:15] LABS: HEMATOCRIT 35.5 % (37.9-51.0); HEMOGLOBIN 12.1 g/dL (13.5-17.0); HGB HCT DIFFERENCE 0.8; MEAN CORPUSCULAR HEMOGLOBIN 31.2 pg (27.0-33.4); MEAN CORPUSCULAR HGB CONC 34.1 g/dL (32.0-36.0); MEAN CORPUSCULAR VOLUME 92 fl (80-97); RED BLOOD COUNT 3.88 10^6/uL (4.35-5.55); RED CELL DISTRIBUTION WIDTH 13.6 % (11.5-14.0); WHITE BLOOD COUNT 10.3 10^3/uL (4.0-10.5)
[2016-12-11 05:44] LABS: BASOPHILS % (MANUAL) 0 % (0-2); EOSINOPHILS % (MANUAL) 1 % (0-6); LYMPHOCYTES % (MANUAL) 5 % (13-45); TOTAL CELLS COUNTED 100
[2016-12-11 05:48] LABS: RBC MORPHOLOGY COMMENT NORMO-CYTIC/CHROMIC
[2016-12-11] MEDS: ENOXAPARIN SODIUM INJ 40 MG/0.4 ML DISP.SYRIN SUBCUT SCH (08:17)
[2016-12-11] MEDS: POTASSI CL 20 MEQ/50 ML RIDER 20 MEQ/50 ML RTUPB IV SCH ×2 (08:18→10:55)
[2016-12-11] MEDS ORDERED: IRON SUCROSE COMPLEX INJ/PF 100 MG/5 ML SDV IV ONE (09:00)
[2016-12-11] MEDS: CETIRIZINE 10 MG TABLET PO SCH (09:25)
[2016-12-11] MEDS: METOPROLOL SUCCINATE 25 MG TAB.SR.24H PO SCH (09:26)
--- NOTE | 2016-12-11 13:53 | PROGRESS NOTE E ---
Progress Note NAME: MARIFER LOZA : 1950 AGE: 66Y DATE: 12/11/2016 ROOM: 415 SUBJECTIVE: This is the second postoperative day for the patient. He feels a lot better after having passed some flatus this morning. OBJECTIVE: ABDOMEN: Soft and nontender. LABORATORY: His white count is normal at 10.3. He drained about 20 mL from the abdominal drain. PLAN: Start him on clear liquids this morning. Continue IV antibiotics and hydration until he is able to tolerate more p.o. liquids. DICTATING PHYSICIAN: MALCOLM CASILLAS M.D. [id number] PHY#: [id number] ID: [id number] JOB#: [id number] ACCT: [id number] cc: >
[2016-12-11] MEDS ORDERED: DEXTROSE 5%-1/2 NORMAL SALINE 1,000 ML IV PRN (14:39)
[2016-12-11] MEDS ORDERED: FUROSEMIDE 20 MG TABLET PO ONE (14:41)
--- NOTE | 2016-12-11 14:44 | PDOC PROGRESS REPORT ---
Subjective Progress Note for:: 12/11/16 Subjective:: Patient is currently awake. He denies any headaches, nausea, vomiting, and weakness. He reports he has passed flatus. Patient denies chest pain, shortness of breath, nausea, vomiting, fevers, chills , diarrhea, headache, new onset weakness. Physical Exam Vital Signs: Temp Pulse Resp BP Pulse Ox 99.7 F 80 19 127/70 H 92 12/10/16 23:23 12/10/16 23:23 12/10/16 23:23 12/10/16 23:23 12/10/16 23:23 Intake & Output 12/10/16 12/11/16 12/12/16 06:59 06:59 06:59 Intake Total 9715 1283 Output Total 4490 2540 Balance 5225 -1257 Exam: General: Awake alert and oriented x3, no acute respiratory distress HEENT: AT/NC, PERRL, EOMI, oropharynx is moist, pink, no scleral icterus, no conjunctival injection Neck: No JVD, trachea midline Chest: Prolonged expiratory phase, bilateral bibasilar crackles CV: Regular rate and rhythm, normal S1 and S2, no murmur, rub, or gallop Abdomen: Diffusely tender to palpation, not distended, active bowel sounds; no rebound, rigidity, or guarding Extremities: No cyanosis, clubbing; trace edema Neuro: Cranial nerves II through XII are grossly intact without focal deficits; awake alert and oriented x3 Psych: Normal mood and affect Results Laboratory Results: 12/11/16 04:25 12/11/16 04:25 12/10/16 12/10/16 12/10/16 10:52 15:48 19:53 WBC RBC Hgb Hct MCV MCH MCHC RDW Plt Count Seg Neutrophils % Lymphocytes % Monocytes % Eosinophils % Basophils % Absolute Neutrophils Absolute Lymphocytes Absolute Monocytes Absolute Eosinophils Absolute Basophils Retic Count (auto) Absolute Retic Sodium 126.9 L 129.0 L 127.7 L Potassium 3.7 3.6 3.8 Chloride 97 L 93 L 96 L Carbon Dioxide 20 L 25 26 Anion Gap 10 11 6 BUN 11 12 13 Creatinine 0.89 0.98 1.09 Est GFR ( Amer) > 60 > 60 > 60 Est GFR (Non-Af Amer) > 60 > 60 > 60 Glucose 118 H 106 101 Calcium 7.8 L 8.0 L 8.2 L Magnesium Iron TIBC % Saturation Ferritin Vitamin B12 Folate 12/10/16 12/11/16 12/11/16 23:45 04:25 04:25 WBC 10.3 RBC 3.88 L Hgb 12.1 L Hct 35.5 L MCV 92 MCH 31.2 MCHC 34.1 RDW 13.6 Plt Count 198 Seg Neutrophils % Not Reportable Lymphocytes % Not Reportable Monocytes % Not Reportable Eosinophils % Not Reportable Basophils % Not Reportable Absolute Neutrophils Not Reportable Absolute Lymphocytes Not Reportable Absolute Monocytes Not Reportable Absolute Eosinophils Not Reportable Absolute Basophils Not Reportable Retic Count (auto) 1.12 Absolute Retic 0.044 Sodium 130.8 L 133.8 L Potassium 4.0 3.6 Chloride 96 L 99 Carbon Dioxide 26 25 Anion Gap 9 10 BUN 13 12 Creatinine 1.09 1.00 Est GFR ( Amer) > 60 > 60 Est GFR (Non-Af Amer) > 60 > 60 Glucose 102 113 H Calcium 8.5 8.4 Magnesium 1.8 Iron < 10.1 L TIBC 216 L % Saturation UNABLE TO CALCULATE Ferritin 236.00 Vitamin B12 676.0 Folate 19.30 12/09/16 06:14 NT-Pro-B Natriuret Pep 863 Impressions: Chest X-Ray 12/08/16 21:54 IMPRESSION: Mild left basilar atelectasis. Abdomen/Pelvis CT 12/09/16 00:00 IMPRESSION: Colonic diverticulosis. Mild inflammatory changes with a gas and fluid collection in the anterior midline pelvis adjacent to the sigmoid colon, suggestive of acute diverticulitis with a contained bowel perforation. Surgical consult recommended. Assessment & Plan - Diagnosis (1) Hyponatremia Is this a current diagnosis for this admission?: YesPlan: Patient's doing quite well. Feel this was likely secondary to excessive free water intake and acute drop in sodium. Patient self reports drinking more than a gallon of water daily prior to admission. Patient also had urinary retention and had more than 1.5 L out when Fajardo was placed. Patient then received 9715 mL of fluid in the last 24 hours with 4490mL out. Patient's repeat urine sodium is elevated which is consistent with his hyponatremia secondary to volume overload. We'll give patient additional Lasix today and stop IV fluids. (2) Perforation of sigmoid colon due to diverticulitis Is this a current diagnosis for this admission?: YesPlan: At this time, defer all management of abdominal complaints, complications, diagnoses, and treatments to the surgical primary team. Patient is status post laparoscopic resection of the sigmoid colon day #2 (3) Acute urinary retention Is this a current diagnosis for this admission?: YesPlan: Patient currently has Fajardo in place and will initiate Flomax plus or minus urology consult. (4) UTI (urinary tract infection) Qualifiers: Urinary tract infection type: site unspecified Hematuria presence: with hematuria Qualified Code(s): N39.0 - Urinary tract infection, site not specified Is this a current diagnosis for this admission?: YesPlan: Patient is currently on Zosyn pending identification of gram-negative rods and gram-positive cocci which are currently growing in his urine. (5) Hypertension Is this a current diagnosis for this admission?: YesPlan: Will reinitiate valsartan once blood pressure improves (6) Impaired fasting glucose Is this a current diagnosis for this admission?: YesPlan: An A1c of 5.3. (7) Anemia Qualifiers: Anemia type: unspecified type Qualified Code(s): D64.9 - Anemia, unspecified Is this a current diagnosis for this admission?: YesPlan: Send anemia panel in the morning - Time Time Spent with patient: 25-34 minutes Medications reviewed and adjusted accordingly: Yes
[2016-12-11] MEDS: TRAZODONE HCL 50 MG TABLET PO SCH (22:11)
[2016-12-12] MEDS: PIPERACILLIN SODIUM/TAZOBACTAM 3.375 GM in NORMAL SALINE 100 ML IV SCH ×3 (02:43→17:32)
[2016-12-12] MEDS: HYDROMORPHONE HCL INJ/PF 2 MG/ML AMPULE IV PRN ×5 (04:29→23:42)
[2016-12-12 05:00] LABS: ABSOLUTE EOSINOPHILS # (AUTO) 0.2 10^3/uL (0.0-0.6); ABSOLUTE LYMPHOCYTES (AUTO) 0.7 10^3/uL (0.5-4.7); ABSOLUTE MONOCYTES (AUTO) 0.6 10^3/uL (0.1-1.4); ABSOLUTE NEUT (AUTO) 7.2 10^3/uL (1.7-8.2); BASOPHILS % (AUTO) 0.2 % (0-2); EOSINOPHILS % (AUTO) 2.7 % (0-6); HEMATOCRIT 34.4 % (37.9-51.0); HEMOGLOBIN 11.8 g/dL (13.5-17.0); LYMPHOCYTES % (AUTO) 7.8 % (13-45); MEAN CORPUSCULAR HEMOGLOBIN 31.1 pg (27.0-33.4); MEAN CORPUSCULAR HGB CONC 34.4 g/dL (32.0-36.0); MEAN CORPUSCULAR VOLUME 90 fl (80-97); MONOCYTES % (AUTO) 6.8 % (3-13); RED BLOOD COUNT 3.81 10^6/uL (4.35-5.55); RED CELL DISTRIBUTION WIDTH 13.9 % (11.5-14.0); SEGMENTED NEUTROPHILS % (AUTO) 82.5 % (42-78); WHITE BLOOD COUNT 8.7 10^3/uL (4.0-10.5)
[2016-12-12 07:58] LABS: ANION GAP 7 (5-19); BLOOD UREA NITROGEN 10 mg/dL (7-20); CALCIUM 8.2 mg/dL (8.4-10.2); CARBON DIOXIDE 25 mmol/L (22-30); CHLORIDE 105 mmol/L (98-107); CREATININE RESULT 1.01 mg/dL (0.52-1.25); GLUCOSE 122 mg/dL (75-110); POTASSIUM 3.6 mmol/L (3.6-5.0)
[2016-12-12] MEDS: ENOXAPARIN SODIUM INJ 40 MG/0.4 ML DISP.SYRIN SUBCUT SCH (08:38)
[2016-12-12] MEDS: CETIRIZINE 10 MG TABLET PO SCH (09:27)
[2016-12-12] MEDS: METOPROLOL SUCCINATE 25 MG TAB.SR.24H PO SCH (09:27)
--- NOTE | 2016-12-12 11:34 | PROGRESS NOTE E ---
Progress Note NAME: MARIFER LOZA : 1950 AGE: 66Y DATE: 12/12/2016 ROOM: 415 SUBJECTIVE: This is his third postop day. He has done quite well. He had his first bowel movement this morning with passage of flatus. He is tolerating clear liquids. His abdomen is soft with some mild tenderness in the right paraumbilical area. He claims pains are controlled with pain medications at this time. His drain has drained about 60 mL in the past 24 hours. His electrolytes are a lot better and this is managed by Dr. Sen. He is afebrile and his white count remains normal. His Fajardo is intact and no discomfort. PLAN: Increase his diet to full liquids today and hopefully increase it to soft diet in the morning. Hopefully we can discontinue the IV fluids soon and get him ambulating more. DICTATING PHYSICIAN: MALCOLM CASILLAS M.D. [id number] PHY#: [id number] ID: [id number] JOB#: [id number] ACCT: [id number] cc: >
[2016-12-12] MEDS: TAMSULOSIN HCL 0.4 MG CAP.SR.24H PO SCH (17:32)
--- NOTE | 2016-12-12 18:15 | PDOC PROGRESS REPORT ---
Subjective Progress Note for:: 12/12/16 Subjective:: Patient is currently awake. He denies any headaches, nausea, vomiting, and weakness. He reports he has passed flatus and has had one diarrhea stool. Patient denies chest pain, shortness of breath, nausea, vomiting, fevers, chills , headache, new onset weakness. Physical Exam Vital Signs: Temp Pulse Resp BP Pulse Ox 98.8 F 72 20 137/72 H 95 12/12/16 14:41 12/12/16 14:41 12/12/16 14:41 12/12/16 14:41 12/12/16 14:41 Intake & Output 12/11/16 12/12/16 12/13/16 06:59 06:59 06:59 Intake Total 1283 1174 1162 Output Total 2540 5065 660 Balance -1257 -291 502 Exam: General: Awake alert and oriented x3, no acute respiratory distress HEENT: AT/NC, PERRL, EOMI, oropharynx is moist, pink, no scleral icterus, no conjunctival injection Neck: No JVD, trachea midline Chest: Prolonged expiratory phase, clear to auscultation bilaterally CV: Regular rate and rhythm, normal S1 and S2, no murmur, rub, or gallop Abdomen: Diffusely tender to palpation, not distended, active bowel sounds; no rebound, rigidity, or guarding Extremities: No cyanosis, clubbing; trace edema Neuro: Cranial nerves II through XII are grossly intact without focal deficits; awake alert and oriented x3 Psych: Normal mood and affect Results Laboratory Results: 12/12/16 04:46 12/12/16 04:46 12/11/16 12/12/16 12/12/16 04:25 04:46 04:46 WBC 8.7 RBC 3.81 L Hgb 11.8 L Hct 34.4 L MCV 90 MCH 31.1 MCHC 34.4 RDW 13.9 Plt Count 216 Seg Neutrophils % 82.5 H Lymphocytes % 7.8 L Monocytes % 6.8 Eosinophils % 2.7 Basophils % 0.2 Absolute Neutrophils 7.2 Absolute Lymphocytes 0.7 Absolute Monocytes 0.6 Absolute Eosinophils 0.2 Absolute Basophils 0.0 Sodium 137.0 Potassium 3.6 Chloride 105 Carbon Dioxide 25 Anion Gap 7 BUN 10 Creatinine 1.01 Est GFR ( Amer) > 60 Est GFR (Non-Af Amer) > 60 Glucose 122 H Calcium 8.2 L Transferrin 146 L 12/09/16 06:14 NT-Pro-B Natriuret Pep 863 Impressions: Chest X-Ray 12/08/16 21:54 IMPRESSION: Mild left basilar atelectasis. Abdomen/Pelvis CT 12/09/16 00:00 IMPRESSION: Colonic diverticulosis. Mild inflammatory changes with a gas and fluid collection in the anterior midline pelvis adjacent to the sigmoid colon, suggestive of acute diverticulitis with a contained bowel perforation. Surgical consult recommended. Assessment & Plan - Diagnosis (1) Hyponatremia Is this a current diagnosis for this admission?: YesPlan: Patient's doing quite well. Feel this was likely secondary to excessive free water intake and acute drop in sodium. Patient self reports drinking more than a gallon of water daily prior to admission. Patient also had urinary retention and had more than 1.5 L out when Fajardo was placed. Patient then received 9715 mL of fluid in the 24 hours of admission with 4490mL out. Patient's repeat urine sodium is elevated which is consistent with his hyponatremia secondary to volume overload. Stop IV fluids. (2) Perforation of sigmoid colon due to diverticulitis Is this a current diagnosis for this admission?: YesPlan: At this time, defer all management of abdominal complaints, complications, diagnoses, and treatments to the surgical primary team. Patient is status post laparoscopic resection of the sigmoid colon day #3 Surgery reports associated abscess and recommended 7 days of antibiotics. (3) Acute urinary retention Is this a current diagnosis for this admission?: YesPlan: Patient currently has Fajardo in place and will initiate Flomax plus or minus urology consult. (4) UTI (urinary tract infection) Qualifiers: Urinary tract infection type: site unspecified Hematuria presence: with hematuria Qualified Code(s): N39.0 - Urinary tract infection, site not specified Is this a current diagnosis for this admission?: YesPlan: Patient is currently on Zosyn which will cover the Escherichia coli as well as strep bovis in his urine. (5) Hypertension Is this a current diagnosis for this admission?: YesPlan: Will reinitiate valsartan once blood pressure improves (6) Impaired fasting glucose Is this a current diagnosis for this admission?: YesPlan: An A1c of 5.3. (7) Anemia Qualifiers: Anemia type: iron deficiency Iron deficiency anemia type: unspecified iron deficiency Qualified Code(s): D50.9 - Iron deficiency anemia, unspecified Is this a current diagnosis for this admission?: YesPlan: We'll give patient IV iron. Plan refer patient to hematology as an outpatient and have recommended the patient follow-up on his iron deficiency anemia as an outpatient with his primary care provider and also for a colonoscopy upon resolution of his current colon problems. Patient reports taking a PPI regularly for his indigestion. - Time Time Spent with patient: 35 or more minutes Medications reviewed and adjusted accordingly: Yes Anticipated discharge: Home Within: within 48 hours
[2016-12-12] MEDS: TRAZODONE HCL 50 MG TABLET PO SCH (21:39)
[2016-12-13] MEDS: PIPERACILLIN SODIUM/TAZOBACTAM 3.375 GM in NORMAL SALINE 100 ML IV SCH ×3 (01:30→18:26)
[2016-12-13 05:43] LABS: ABSOLUTE EOSINOPHILS # (AUTO) 0.4 10^3/uL (0.0-0.6); ABSOLUTE LYMPHOCYTES (AUTO) 0.7 10^3/uL (0.5-4.7); ABSOLUTE MONOCYTES (AUTO) 0.8 10^3/uL (0.1-1.4); ABSOLUTE NEUT (AUTO) 5.6 10^3/uL (1.7-8.2); BASOPHILS % (AUTO) 0.3 % (0-2); EOSINOPHILS % (AUTO) 5.5 % (0-6); HEMATOCRIT 32.3 % (37.9-51.0); HEMOGLOBIN 11.1 g/dL (13.5-17.0); LYMPHOCYTES % (AUTO) 9.3 % (13-45); MEAN CORPUSCULAR HEMOGLOBIN 30.9 pg (27.0-33.4); MEAN CORPUSCULAR HGB CONC 34.4 g/dL (32.0-36.0); MEAN CORPUSCULAR VOLUME 90 fl (80-97); MONOCYTES % (AUTO) 10.5 % (3-13); RED CELL DISTRIBUTION WIDTH 13.7 % (11.5-14.0); SEGMENTED NEUTROPHILS % (AUTO) 74.4 % (42-78); WHITE BLOOD COUNT 7.5 10^3/uL (4.0-10.5)
[2016-12-13] MEDS: HYDROMORPHONE HCL INJ/PF 2 MG/ML AMPULE IV PRN (07:22)
--- NOTE | 2016-12-13 08:08 | PROGRESS NOTE E ---
Progress Note NAME: MARIFER LOZA : 1950 AGE: 66Y DATE: 12/13/2016 ROOM: 415 SUBJECTIVE: This is the fourth postop day post bowel resection for acute diverticulitis with colovesical fistula. Patient continued to have flatus. He did have a bowel movement yesterday. He remains afebrile and his white count remained normal this morning. His abdomen is slightly distended, but soft. His BAN drain just drained about 100 mL in the last 24 hours. PLAN: Continue him on a full-liquid diet today and continue on IV antibiotics and will leave the Fajardo catheter in for at least a few more days. Will probably increase his diet tomorrow if he continues to pass flatus. DICTATING PHYSICIAN: MALCOLM CASILLAS M.D. [id number] PHY#: [id number] ID: [id number] JOB#: [id number] ACCT: [id number] cc: >
--- NOTE | 2016-12-13 08:20 | PDOC PROGRESS REPORT ---
Subjective Progress Note for:: 12/13/16 Subjective:: Feels well. Having bowel movements. Tolerating a full liquid diet well. Physical Exam Vital Signs: Temp Pulse Resp BP Pulse Ox 98.5 F 71 18 132/70 H 91 L 12/12/16 23:16 12/12/16 23:16 12/12/16 23:16 12/12/16 23:16 12/12/16 23:16 Intake & Output 12/12/16 12/13/16 12/14/16 06:59 06:59 06:59 Intake Total 4774 2132 Output Total 5065 1850 Balance -291 282 General appearance: PRESENT: no acute distress, cooperative Respiratory exam: PRESENT: clear to auscultation emmanuel Cardiovascular exam: PRESENT: RRR GI/Abdominal exam: PRESENT: other - Soft, nondistended, mild diffuse abdominal tenderness with no peritoneal signs. Dick-Barnes drain with slightly cloudy output. Extremities exam: PRESENT: other - No tenderness no swelling Results Laboratory Results: 12/13/16 05:11 12/12/16 04:46 12/13/16 05:11 WBC 7.5 RBC 3.60 L Hgb 11.1 L Hct 32.3 L MCV 90 MCH 30.9 MCHC 34.4 RDW 13.7 Plt Count 231 Seg Neutrophils % 74.4 Lymphocytes % 9.3 L Monocytes % 10.5 Eosinophils % 5.5 Basophils % 0.3 Absolute Neutrophils 5.6 Absolute Lymphocytes 0.7 Absolute Monocytes 0.8 Absolute Eosinophils 0.4 Absolute Basophils 0.0 12/09/16 06:14 NT-Pro-B Natriuret Pep 863 Impressions: Chest X-Ray 12/08/16 21:54 IMPRESSION: Mild left basilar atelectasis. Abdomen/Pelvis CT 12/09/16 00:00 IMPRESSION: Colonic diverticulosis. Mild inflammatory changes with a gas and fluid collection in the anterior midline pelvis adjacent to the sigmoid colon, suggestive of acute diverticulitis with a contained bowel perforation. Surgical consult recommended. Assessment & Plan - Diagnosis (1) Perforation of sigmoid colon due to diverticulitis Is this a current diagnosis for this admission?: YesPlan: Status post laparoscopic low anterior resection. Patient doing well. Will advance diet. Keep Fajardo in . Keep Dick-Barnes drain in place until it clears.
[2016-12-13] MEDS: CETIRIZINE 10 MG TABLET PO SCH (09:26)
[2016-12-13] MEDS: METOPROLOL SUCCINATE 25 MG TAB.SR.24H PO SCH (09:26)
[2016-12-13] MEDS: ENOXAPARIN SODIUM INJ 40 MG/0.4 ML DISP.SYRIN SUBCUT SCH (09:26)
[2016-12-13] MEDS ORDERED: VALSARTAN 160 MG TABLET PO ONE (10:30)
[2016-12-13] MEDS ORDERED: LANSOPRAZOLE 15 MG TAB.RAP.DR PO ONE (10:30)
[2016-12-13] MEDS: OXYCODONE-ACETAMINOPHEN 5-325 MG TABLET PO PRN ×3 (13:13→23:45)
--- NOTE | 2016-12-13 15:24 | PDOC PROGRESS REPORT ---
Subjective Progress Note for:: 12/13/16 Subjective:: Patient is currently awake. He denies any headaches, nausea, vomiting, and weakness. He reports he has passed flatus and has had one small solid stool. Patient denies chest pain, shortness of breath, nausea, vomiting, fevers, chills , headache, new onset weakness. Physical Exam Vital Signs: Temp Pulse Resp BP Pulse Ox 98.5 F 71 18 132/70 H 91 L 12/12/16 23:16 12/12/16 23:16 12/12/16 23:16 12/12/16 23:16 12/12/16 23:16 Intake & Output 12/12/16 12/13/16 12/14/16 06:59 06:59 06:59 Intake Total 4751 2132 Output Total 5066 1850 Balance -291 282 Exam: General: Awake alert and oriented x3, no acute respiratory distress HEENT: AT/NC, PERRL, EOMI, oropharynx is moist, pink, no scleral icterus, no conjunctival injection Neck: No JVD, trachea midline Chest: Prolonged expiratory phase, clear to auscultation bilaterally CV: Regular rate and rhythm, normal S1 and S2, no murmur, rub, or gallop Abdomen: Diffusely tender to palpation, mildly distended, active bowel sounds; no rebound, rigidity, or guarding Extremities: No cyanosis, clubbing; trace edema Neuro: Cranial nerves II through XII are grossly intact without focal deficits; awake alert and oriented x3 Psych: Normal mood and affect Results Laboratory Results: 12/13/16 05:11 12/12/16 04:46 12/13/16 05:11 WBC 7.5 RBC 3.60 L Hgb 11.1 L Hct 32.3 L MCV 90 MCH 30.9 MCHC 34.4 RDW 13.7 Plt Count 231 Seg Neutrophils % 74.4 Lymphocytes % 9.3 L Monocytes % 10.5 Eosinophils % 5.5 Basophils % 0.3 Absolute Neutrophils 5.6 Absolute Lymphocytes 0.7 Absolute Monocytes 0.8 Absolute Eosinophils 0.4 Absolute Basophils 0.0 12/09/16 06:14 NT-Pro-B Natriuret Pep 863 Impressions: Chest X-Ray 12/08/16 21:54 IMPRESSION: Mild left basilar atelectasis. Abdomen/Pelvis CT 12/09/16 00:00 IMPRESSION: Colonic diverticulosis. Mild inflammatory changes with a gas and fluid collection in the anterior midline pelvis adjacent to the sigmoid colon, suggestive of acute diverticulitis with a contained bowel perforation. Surgical consult recommended. Assessment & Plan - Diagnosis (1) Hyponatremia Is this a current diagnosis for this admission?: YesPlan: Resolved Feel this was likely secondary to excessive free water intake and acute drop in sodium. Patient self reports drinking more than a gallon of water daily prior to admission. Patient also had urinary retention and had more than 1.5 L out when Fajardo was placed. Patient then received 9715 mL of fluid in the 24 hours of admission with 4490mL out. Patient's repeat urine sodium is elevated which is consistent with his hyponatremia secondary to volume overload. Stop IV fluids. (2) Perforation of sigmoid colon due to diverticulitis Is this a current diagnosis for this admission?: YesPlan: At this time, defer all management of abdominal complaints, complications, diagnoses, and treatments to the surgical primary team. Patient is status post laparoscopic resection of the sigmoid colon day #4 Surgery reports associated abscess and recommended 7 days of antibiotics. (3) Acute urinary retention Is this a current diagnosis for this admission?: YesPlan: Patient currently has Fajardo in place and will initiate Flomax plus or minus urology consult. (4) UTI (urinary tract infection) Qualifiers: Urinary tract infection type: site unspecified Hematuria presence: with hematuria Qualified Code(s): N39.0 - Urinary tract infection, site not specified Is this a current diagnosis for this admission?: YesPlan: Patient is currently on Zosyn which will cover the Escherichia coli as well as strep bovis in his urine. Patient is currently on day #4 of treatment. (5) Hypertension Is this a current diagnosis for this admission?: YesPlan: Reinitiate valsartan today. Monitor creatinine. (6) Impaired fasting glucose Is this a current diagnosis for this admission?: YesPlan: An A1c of 5.3. (7) Anemia Qualifiers: Anemia type: iron deficiency Iron deficiency anemia type: unspecified iron deficiency Qualified Code(s): D50.9 - Iron deficiency anemia, unspecified Is this a current diagnosis for this admission?: YesPlan: Patient has received Venofer. Plan refer patient to hematology as an outpatient and have recommended the patient follow-up on his iron deficiency anemia as an outpatient with his primary care provider and also for a colonoscopy upon resolution of his current colon problems. Patient reports taking a PPI regularly for his indigestion. Patient verbalizes the understanding of this condition and the importance of having it evaluated as an outpatient. - Time Time Spent with patient: 25-34 minutes Medications reviewed and adjusted accordingly: Yes Anticipated discharge: Home
[2016-12-13] MEDS: TAMSULOSIN HCL 0.4 MG CAP.SR.24H PO SCH (18:26)
[2016-12-13] MEDS: ATORVASTATIN CALCIUM 10 MG TABLET PO SCH (22:33)
[2016-12-13] MEDS: SIMETHICONE 80 MG TAB.CHEW PO PRN (22:38)
[2016-12-13] MEDS: TRAZODONE HCL 50 MG TABLET PO SCH (22:38)
[2016-12-14] MEDS: PIPERACILLIN SODIUM/TAZOBACTAM 3.375 GM in NORMAL SALINE 100 ML IV SCH ×3 (02:21→17:42)
[2016-12-14 05:04] LABS: HEMATOCRIT 34.4 % (37.9-51.0); HEMOGLOBIN 11.8 g/dL (13.5-17.0); MEAN CORPUSCULAR HEMOGLOBIN 31.1 pg (27.0-33.4); MEAN CORPUSCULAR HGB CONC 34.2 g/dL (32.0-36.0); MEAN CORPUSCULAR VOLUME 91 fl (80-97); RED BLOOD COUNT 3.79 10^6/uL (4.35-5.55); RED CELL DISTRIBUTION WIDTH 13.6 % (11.5-14.0); WHITE BLOOD COUNT 8.7 10^3/uL (4.0-10.5)
[2016-12-14 05:23] LABS: BAND NEUTROPHILS % (MANUAL) 2 % (3-5); BASOPHILS % (MANUAL) 0 % (0-2); EOSINOPHILS % (MANUAL) 3 % (0-6); LYMPHOCYTES % (MANUAL) 11 % (13-45); TOTAL CELLS COUNTED 100
[2016-12-14 05:24] LABS: TOXIC GRANULATION SLIGHT
[2016-12-14 05:25] LABS: POLYCHROMASIA SLIGHT
[2016-12-14] MEDS: LANSOPRAZOLE 15 MG TAB.RAP.DR PO SCH (06:02)
[2016-12-14] MEDS: OXYCODONE-ACETAMINOPHEN 5-325 MG TABLET PO PRN ×4 (06:06→20:22)
[2016-12-14] MEDS: SIMETHICONE 80 MG TAB.CHEW PO PRN ×4 (06:06→21:33)
[2016-12-14] MEDS: ENOXAPARIN SODIUM INJ 40 MG/0.4 ML DISP.SYRIN SUBCUT SCH (08:46)
[2016-12-14] MEDS: ONDANSETRON HCL INJ/PF 4 MG/2 ML SDV IV PRN (08:49)
[2016-12-14] MEDS: METOPROLOL SUCCINATE 25 MG TAB.SR.24H PO SCH (09:52)
[2016-12-14] MEDS: CETIRIZINE 10 MG TABLET PO SCH (09:52)
[2016-12-14] MEDS: VALSARTAN 160 MG TABLET PO SCH (09:52)
[2016-12-14] MEDS ORDERED: OMEPRAZOLE PO SCH (10:00)
[2016-12-14] MEDS ORDERED: SODIUM BICARBONATE PO SCH (10:00)
[2016-12-14] MEDS ORDERED: (PENDING PHARMACY ID) (Pravastatin Sodium [Pravastatin Sodium] 40 MG) PO SCH (10:00)
--- NOTE | 2016-12-14 12:35 | PDOC PROGRESS REPORT ---
Subjective Progress Note for:: 12/14/16 Subjective:: Patient complains of occasional bloating but able to pass gas freely, denies any increasing abdominal pain nausea or vomiting. Denies chills or fever, no shortness of breath or chest pain. No dizziness or lightheadedness. No reported confusion. Physical Exam Vital Signs: Temp Pulse Resp BP Pulse Ox 98.9 F 64 18 129/65 H 95 12/14/16 11:21 12/14/16 11:21 12/14/16 11:21 12/14/16 11:21 12/14/16 11:21 Intake & Output 12/13/16 12/14/16 12/15/16 06:59 06:59 06:59 Intake Total 2132 1870 Output Total 1850 2450 60 Balance 282 -580 -60 General appearance: PRESENT: no acute distress, cooperative, well-developed Head exam: PRESENT: normocephalic Eye exam: PRESENT: EOMI Mouth exam: PRESENT: moist, neck supple Neck exam: ABSENT: JVD Respiratory exam: PRESENT: clear to auscultation emmanuel Cardiovascular exam: PRESENT: RRR. ABSENT: gallop GI/Abdominal exam: PRESENT: hypoactive bowel sounds, soft. ABSENT: distended Extremities exam: ABSENT: pedal edema Neurological exam: PRESENT: alert, awake, oriented to person, oriented to place , oriented to time, oriented to situation Skin exam: PRESENT: dry, warm. ABSENT: cyanosis Results Laboratory Results: 12/14/16 04:29 12/12/16 04:46 12/14/16 04:29 WBC 8.7 RBC 3.79 L Hgb 11.8 L Hct 34.4 L MCV 91 MCH 31.1 MCHC 34.2 RDW 13.6 Plt Count 280 Seg Neutrophils % Not Reportable Lymphocytes % Not Reportable Monocytes % Not Reportable Eosinophils % Not Reportable Basophils % Not Reportable Absolute Neutrophils Not Reportable Absolute Lymphocytes Not Reportable Absolute Monocytes Not Reportable Absolute Eosinophils Not Reportable Absolute Basophils Not Reportable 12/09/16 01:59 Blood Blood Culture - Final NO GROWTH IN 5 DAYS 12/09/16 06:14 NT-Pro-B Natriuret Pep 863 Impressions: Chest X-Ray 12/08/16 21:54 IMPRESSION: Mild left basilar atelectasis. Abdomen/Pelvis CT 12/09/16 00:00 IMPRESSION: Colonic diverticulosis. Mild inflammatory changes with a gas and fluid collection in the anterior midline pelvis adjacent to the sigmoid colon, suggestive of acute diverticulitis with a contained bowel perforation. Surgical consult recommended. Assessment & Plan - Diagnosis (1) Hyponatremia Is this a current diagnosis for this admission?: Yes (2) Anemia Qualifiers: Anemia type: iron deficiency Iron deficiency anemia type: unspecified iron deficiency Qualified Code(s): D50.9 - Iron deficiency anemia, unspecified Is this a current diagnosis for this admission?: Yes (3) Hypertension Qualifiers: Hypertension type: essential hypertension Qualified Code(s): I10 - Essential (primary) hypertension Is this a current diagnosis for this admission?: Yes (4) Perforation of sigmoid colon due to diverticulitis Is this a current diagnosis for this admission?: Yes (5) UTI (urinary tract infection) Qualifiers: Urinary tract infection type: site unspecified Hematuria presence: with hematuria Qualified Code(s): N39.0 - Urinary tract infection, site not specified Is this a current diagnosis for this admission?: Yes - Time Time Spent with patient: 25-34 minutes - Plan Summary Plan Summary: Continue current antibiotics and other medications. Continue supportive care. Out of bed with physical therapy. Increase ambulation. We will sign off from his case. Thank you so much for letting us participate in his care. Please reconsult as needed.
[2016-12-14] MEDS: TAMSULOSIN HCL 0.4 MG CAP.SR.24H PO SCH (17:42)
--- NOTE | 2016-12-14 18:03 | PROGRESS NOTE E ---
Progress Note NAME: MARIFER LOZA : 1950 AGE: 66Y DATE: 12/14/2016 ROOM: 415 SUBJECTIVE: This is the 8th postop bowel resection for acute diverticulitis with colovesical fistula. The patient continues to have flatus; however, he feels somewhat bloated. OBJECTIVE: His abdomen is soft but somewhat distended. His white count remains normal. He remains afebrile. His BAN drained about 60 mL in the past 24 hours, somewhat serosanguineous. PLAN: He was started on soft diet today; however, since he feels bloated, I told him to maybe take more of the liquid diet and start gradually on a soft diet that he has on his plate. DICTATING PHYSICIAN: MALCOLM CASILLAS M.D. [id number] PHY#: [id number] ID: [id number] JOB#: [id number] ACCT: [id number] cc: >
[2016-12-14] MEDS: ATORVASTATIN CALCIUM 10 MG TABLET PO SCH (20:25)
[2016-12-14] MEDS: TRAZODONE HCL 50 MG TABLET PO SCH (21:33)
[2016-12-15] MEDS: OXYCODONE-ACETAMINOPHEN 5-325 MG TABLET PO PRN ×6 (02:34→23:28)
[2016-12-15] MEDS: PIPERACILLIN SODIUM/TAZOBACTAM 3.375 GM in NORMAL SALINE 100 ML IV SCH ×4 (02:34→23:29)
[2016-12-15] MEDS: SIMETHICONE 80 MG TAB.CHEW PO PRN ×4 (02:34→17:52)
[2016-12-15] MEDS: LANSOPRAZOLE 15 MG TAB.RAP.DR PO SCH (06:33)
[2016-12-15] MEDS: ENOXAPARIN SODIUM INJ 40 MG/0.4 ML DISP.SYRIN SUBCUT SCH (07:48)
[2016-12-15] MEDS: VALSARTAN 160 MG TABLET PO SCH (09:31)
[2016-12-15] MEDS: METOPROLOL SUCCINATE 25 MG TAB.SR.24H PO SCH (09:31)
[2016-12-15] MEDS: CETIRIZINE 10 MG TABLET PO SCH (09:32)
[2016-12-15] MEDS: HYDROMORPHONE HCL INJ/PF 2 MG/ML AMPULE IV PRN ×2 (17:30→21:30)
[2016-12-15] MEDS: TAMSULOSIN HCL 0.4 MG CAP.SR.24H PO SCH (17:52)
--- NOTE | 2016-12-15 17:59 | PROGRESS NOTE E ---
Progress Note NAME: MARIFER LOZA : 1950 AGE: 66Y DATE: 12/15/2016 ROOM: 415 SUBJECTIVE: The patient remains afebrile. OBJECTIVE: His abdomen is soft and nontender. BAN drain still considerable amount of drainage. PLAN: 1. We will start him on a soft diet today. 2. The plan is to keep his Fajardo in place and maybe discontinue when he is followed up at the Surgical Clinic this coming week. DICTATING PHYSICIAN: MALCOLM CASILLAS M.D. [id number] PHY#: [id number] ID: [id number] JOB#: [id number] ACCT: [id number] cc: >
[2016-12-15] MEDS: ONDANSETRON HCL INJ/PF 4 MG/2 ML SDV IV PRN (19:44)
[2016-12-15] MEDS: ATORVASTATIN CALCIUM 10 MG TABLET PO SCH (19:45)
[2016-12-15] MEDS: TRAZODONE HCL 50 MG TABLET PO SCH (23:28)
[2016-12-16] MEDS: HYDROMORPHONE HCL INJ/PF 2 MG/ML AMPULE IV PRN (02:50)
[2016-12-16] MEDS: OXYCODONE-ACETAMINOPHEN 5-325 MG TABLET PO PRN ×5 (03:51→20:19)
[2016-12-16] MEDS: LANSOPRAZOLE 15 MG TAB.RAP.DR PO SCH (05:47)
[2016-12-16] MEDS: SIMETHICONE 80 MG TAB.CHEW PO PRN ×4 (07:32→22:47)
[2016-12-16] MEDS: ENOXAPARIN SODIUM INJ 40 MG/0.4 ML DISP.SYRIN SUBCUT SCH (08:01)
[2016-12-16] MEDS: VALSARTAN 160 MG TABLET PO SCH (10:10)
[2016-12-16] MEDS: METOPROLOL SUCCINATE 25 MG TAB.SR.24H PO SCH (10:10)
[2016-12-16] MEDS: CETIRIZINE 10 MG TABLET PO SCH (10:11)
--- NOTE | 2016-12-16 13:03 | PROGRESS NOTE E ---
Progress Note NAME: MARIFER LOZA : 1950 AGE: 66Y DATE: 12/16/2016 ROOM: 415 He remains afebrile and denies any pains. Dick-Barnes drain has been draining still considerable amount. He is tolerating his soft diet better today. The plan is to possibly discharge him tomorrow and follow up in the surgical clinic. The drain and the Fajardo catheter can be removed at the surgical clinic. He is only about 7 days postop and the Fajardo catheter can stay for a few more days to assure healing of the bladder repair from the fistula. DICTATING PHYSICIAN: MALCOLM CASILLAS M.D. [id number] PHY#: [id number] ID: [id number] JOB#: [id number] ACCT: [id number] cc: >
[2016-12-16] MEDS: TAMSULOSIN HCL 0.4 MG CAP.SR.24H PO SCH (17:00)
[2016-12-16] MEDS: ATORVASTATIN CALCIUM 10 MG TABLET PO SCH (20:19)
[2016-12-16] MEDS: TRAZODONE HCL 50 MG TABLET PO SCH (22:46)
[2016-12-17] MEDS: OXYCODONE-ACETAMINOPHEN 5-325 MG TABLET PO PRN ×3 (00:28→09:40)
[2016-12-17] MEDS: LANSOPRAZOLE 15 MG TAB.RAP.DR PO SCH (04:56)
[2016-12-17] MEDS: SIMETHICONE 80 MG TAB.CHEW PO PRN ×2 (04:57→09:40)
[2016-12-17] MEDS: ENOXAPARIN SODIUM INJ 40 MG/0.4 ML DISP.SYRIN SUBCUT SCH (09:38)
[2016-12-17] MEDS: METOPROLOL SUCCINATE 25 MG TAB.SR.24H PO SCH (09:40)
[2016-12-17] MEDS: CETIRIZINE 10 MG TABLET PO SCH (09:40)
[2016-12-17] MEDS: VALSARTAN 160 MG TABLET PO SCH (09:41)
[2016-12-17 12:32] VITALS: BP 139/68
--- NOTE | 2016-12-17 16:53 | DISCHARGE SUMMARY E ---
Discharge Summary NAME: MARIFER LOZA : 1950 AGE: 66Y ADMITTED: 12/09/2016 DISCHARGED: SUMMARY OF HOSPITALIZATION: The patient is a 66-year-old white gentleman who presents to the emergency department complaining of acute onset of abdominal pain the morning of admission. He was evaluated and found to have abdominal discomfort, and dark urine. CT scan showed diverticulitis, complicated by microperforation. The patient was admitted to the surgical service, kept NPO on IV fluids. He was taken to the operating room by Dr. Albright, where he underwent laparoscopic minimally invasive sigmoid colectomy, with stapled colocolostomy and anastomosis; he was also found to have a colovesical fistula, which was primarily closed. Fajardo catheter was left in place, as was a drain. The patient's postoperative course was uneventful. He eventually had return of bowel function and was started on a diet, and this was advanced and tolerated well. On the 6th postoperative day, his drain was removed uneventfully. His Fajardo catheter drained clear urine and was left in place. His pain was adequately managed. Of note, when the patient was admitted he had a sodium of 129. This was eventually corrected and by the time of discharge, it was normal. By the 8th postoperative day, he was ready for discharge home from [facility]. FINAL DIAGNOSES: 1. Complicated diverticulitis, Hinchey classification I, status post exploratory laparoscopic surgery, sigmoid colectomy, primary anastomosis, and closure of colovesical fistula by Dr. Albright. 2. Hyponatremia, corrected. DISPOSITION: The patient was discharged home in the care of his family. Follow up at [facility] approximately 4 days. He will be given Tylenol PRN pain. He will need to follow up with a urologist on an outpatient basis for discontinuation of Fajadro catheter in light of recent vesicular closure, as well as a history of urinary hesitancy. DICTATING PHYSICIAN: FRANSISCO SINCLAIR M.D. [id number] PHY#: [id number] ID: [id number] JOB#: [id number] ACCT: [id number] cc:Giles GHTORA M.D. > [facility]
== END 2016-12-17 16:20 | disposition home or self-care (01) | DRG 330 ==
LOC: ER 20:17 → EH 12-09 01:00 → UNDOADMIN 12-09 01:47 → 4N 12-09 04:10 → EH 12-09 04:10
PROVIDERS: ADMIT Colon & Rectal Surgery; ATTEND Colon & Rectal Surgery
PROC: 0DTM4ZZ Resection of Descending Colon, Percutaneous Endoscopic Approach (ICD-10-PCS; 2016-12-09)
PROC: 0TQB4ZZ Repair Bladder, Percutaneous Endoscopic Approach (ICD-10-PCS; 2016-12-09)
PROC: 0DTN4ZZ Resection of Sigmoid Colon, Percutaneous Endoscopic Approach (ICD-10-PCS; principal; 2016-12-09 12:30)
DX: K57.20 Diverticulitis of large intestine with perforation and abscess without bleeding (principal); E87.1 Hypo-osmolality and hyponatremia; N39.0 Urinary tract infection, site not specified; N32.1 Vesicointestinal fistula; I10 Essential (primary) hypertension; E78.5 Hyperlipidemia, unspecified; K21.9 Gastro-esophageal reflux disease without esophagitis; R33.9 Retention of urine, unspecified; B96.20 Unspecified Escherichia coli [E. coli] as the cause of diseases classified elsewhere; R31.9 Hematuria, unspecified; D50.9 Iron deficiency anemia, unspecified; R73.01 Impaired fasting glucose; Z91.030 Bee allergy status; Z79.899 Other long term (current) drug therapy; Z87.891 Personal history of nicotine dependence; Z80.9 Family history of malignant neoplasm, unspecified
CPT/HCPCS: 36415; 51702; 71010; 74177; 80048; 80053; 81001; 82040; 82570; 82607; 82728; 82746; 83036; 83540; 83550; 83690; 83735; 83880; 83930; 83935; 840; 84300; 84466; 85025; 85027; 85045; 86850; 86900; 86901; 87040; 87086; 87088; 87186; 87493; 88307; 93005; 93010; 94799; 96361; 96365; 96375; 96376; 99291; J0131; J0330; J0696; J1170; J1610; J1650; J1756; J1940; J2250; J2405; J2543; J2597; J2704; J3010; J3480; J3490; J7030; J7040; J7060; J7120

== ENCOUNTER 2017-01-22 06:56 | Day surgery (SDC) | payer MEDICARE ==
[~2017-01-22 06:56] MED LIST changes: +BUPIVACAINE HCL 0.75% INJ/PF (7.5 MG/1 ML) 10 ML SDV OD PRN; -BUPIVACAINE HCL 0.75% INJ/PF (7.5 MG/1 ML) 10 ML SDV OS PRN; +KETOROLAC TROMETHAMINE 0.45% 4 DROP/0.4 ML DROPERETTE OD PRN; -KETOROLAC TROMETHAMINE 0.45% 4 DROP/0.4 ML DROPERETTE OS PRN; +LIDOCAINE 4% INJ/PF (40 MG/ML) 5 ML AMPUL OD PRN; -LIDOCAINE 4% INJ/PF (40 MG/ML) 5 ML AMPUL OS PRN
[2017-01-22] MEDS ORDERED: MIDAZOLAM 2 MG/2 ML INJ ONE (07:02)
[2017-01-22] MEDS ORDERED: EPINEPHRINE INJ/PF 1 MG/1 ML AMPULE ONE (07:45)
[2017-01-22] MEDS: TROPICAMIDE 1% OPH SOLN 3 ML OD PRN ×3 (08:04→08:32)
[2017-01-22] MEDS: CYCLOPENTOLATE 0.2%/PHENYLEPHRINE 1% OPH SOLN 2 ML OD PRN ×3 (08:04→08:32)
[2017-01-22] MEDS: BESIFLOXACIN HCL 0.6% OPH SUSP 5 ML BOTTLE OD PRN ×4 (08:05→09:28)
[2017-01-22] MEDS: TETRACAINE HCL 0.5% OPH SOLN 0.6 ML DROPERETTE OD PRN ×2 (08:06→08:33)
[2017-01-22] MEDS: LIDOCAINE 1% INJ-PF (10 MG/ML) 30 ML SDV ONE ×2 (09:09)
[2017-01-22] MEDS: CHONDR SU A NA/HYALUR INTRAOC KIT (SURGICARE) ONE ×2 (09:09)
[2017-01-22] MEDS: PHENYLEPHRINE/KETOROLAC 1%-0.3% 4 ML VIAL ONE ×2 (09:09)
--- NOTE | 2017-01-22 10:18 | [facility] OPERATIVE REPORT E ---
[facility] Operative Report NAME: MARIFER LOZA AGE: 66Y DATE OF SURGERY: 01/22/2017 ROOM: PREOPERATIVE DIAGNOSIS: Cataract, right eye. POSTOPERATIVE DIAGNOSIS: Cataract, right eye. PROCEDURE PERFORMED: Phacoemulsification with Toric intraocular lens implant, right eye. SURGEON: ATMARA SUAREZ M.D. ANESTHESIA: Topical with MAC. INDICATIONS FOR SURGERY: Difficulty driving and reading small print. Best corrected visual acuity 20/40. PROCEDURE: The patient was brought to the Operating Room and placed on the operative table. The patient was placed in a seated position and the 0, 270 and 180 degree axis were marked on the eye. Following tetracaine drops, topical anesthesia was administered. This consisted of instrument wipe pledgets soaked in a solution of 4% Xylocaine mixed with 0.75% Marcaine in a 1:2 ratio. A 2 x 1 cm pledget was placed in the superior fornix. A 1 x 1 cm pledget was placed in the inferior fornix. The eye was patched shut for 5 minutes. The patch was removed. The eye was sterilely prepped and draped in the usual manner. Lid speculum was placed in the eye. The pledgets were removed and 4-0 black silk sutures were placed around the superior and the inferior rectus muscles to be used as traction. A conjunctival peritomy was made at the 10 o'clock position. Hemostasis was obtained with bipolar cautery. A posterior limbal groove was created using a crescent knife and dissected anteriorly towards the cornea. A sharp point blade was used to create a paracentesis site at the 2 o'clock position. A 2.4-mm keratome was used to enter the anterior chamber through the groove. Viscoelastic was injected into the anterior chamber. An anterior capsulotomy was performed using Utrata forceps in a capsulorrhexis fashion. Hydrodissection and hydrodelineation were performed. Phacoemulsification was performed in [id number] technique. A total of 33.2 seconds phaco time was used. Following this, the I/A unit was used to remove residual cortex. Viscoelastic was injected into the capsular bag. Intraocular lens model SN6AT5, 22.0 diopters, serial number [id number], was rotated to the 0-degree position. The I/A unit was used to remove residual viscoelastic. The wound was seen to be watertight under high and low pressure, and no sutures were placed. The intraocular lens was well centered. The pressure was adjusted in the eye to normal pressure. The 4-0 black silk sutures and lid speculum were removed. The eye was shielded after Besivance drops were placed. The patient tolerated the procedure well and was sent to the Recovery Room in good condition. DICTATING PHYSICIAN: TAMARA SUAREZ M.D. [id number] [id number] PHY#: [id number] ID: [id number] JOB#: [id number] ACCT: [id number] cc:TAMARA SUAREZ M.D. >
--- NOTE | 2017-01-22 10:23 | [facility] DISCHARGE SUMMARY E ---
[facility] Discharge Summary NAME: MARIFER LOZA AGE: 66Y ADMITTED: 01/22/2017 DISCHARGED: 01/22/2017 FINAL DIAGNOSIS: Cataract, right eye. HOSPITAL COURSE: The patient is a 66-year-old gentleman who underwent uneventful cataract extraction with Toric intraocular lens implant, right eye, on 01/22/2017. He will be discharged to home. He was instructed to resume preoperative medications, to take Tylenol as needed for discomfort, to keep his eye shielded, to use Besivance, Durezol and Ilevro at 3 p.m. and 8 p.m., and to follow up in my office in 1 day. DICTATING PHYSICIAN: TAMARA SUAREZ M.D. [id number] [id number] PHY#: [id number] ID: [id number] JOB#: [id number] ACCT: [id number] cc:TAMARA SUAREZ M.D. >
== END 2017-01-22 10:09 | disposition home or self-care (01) ==
LOC: SC 06:56
PROVIDERS: ATTEND Ophthalmology
PROC: 08RJ3JZ Replacement of Right Lens with Synthetic Substitute, Percutaneous Approach (ICD-10-PCS; principal; 2017-01-22 09:00)
DX: H25.811 Combined forms of age-related cataract, right eye (principal); I10 Essential (primary) hypertension; E78.00 Pure hypercholesterolemia, unspecified; G51.0 Bell's palsy; F41.9 Anxiety disorder, unspecified; K21.9 Gastro-esophageal reflux disease without esophagitis; J30.2 Other seasonal allergic rhinitis; Z87.891 Personal history of nicotine dependence; Z79.899 Other long term (current) drug therapy; Z79.1 Long term (current) use of non-steroidal anti-inflammatories (NSAID)
CPT/HCPCS: 66984; V2787; J3490 ×4; A9270; C9447; 142; J0171; J2250